=== PATIENT | male | born 1945 | race African-American/Black ===

== ENCOUNTER 2018-03-16 10:48 | Emergency (ER) | payer SELFPAY ==
[2018-03-16 11:07] VITALS: BP 162/76; PULSE 73; TEMP 98.4; BMI 29.8
[2018-03-16] MEDS ORDERED: ACETAMINOPHEN 325 MG TABLET (FP) PO ONE (12:45)
[2018-03-16] MEDS ORDERED: DIPHTH,PERTUSS(ACELL),TET 0.5 ML DISP.SYRIN IM ONE (12:45)
--- NOTE | 2018-03-16 12:46 | PDOC ---
History of Present Illness - General Chief Complaint: Injury Stated Complaint: LACERATION TO FACE Time Seen by Provider: 03/16/18 12:04 History Source: Patient - History of Present Illness Timing/Duration: reports: 1-3 hours Associated Symptoms: denies: loss of consciousness, nausea/vomiting, vision changes Past History - Past Medical History Allergies/Adverse Reactions: Allergies Allergy/AdvReac Type Severity Reaction Status Date / Time No Known Allergies Allergy Verified 03/16/18 11:07 Home Medications: Ambulatory Orders NK [No Known Home Medication] 03/16/18 COPD: No Diabetes: Yes HTN: Yes - Suicide/Smoking/Psychosocial Hx Smoking History: Never smoked Review of Systems - Review of Systems HEENTM: No: Blurred Vision Respiratory: No: Shortness of Breath Cardiac (ROS): No: Chest Pain, Lightheadedness Neurological: No: Headache, Dizziness *Physical Exam - Vital Signs Last Vital Signs Temp Pulse Resp BP Pulse Ox 98.4 F 73 18 162/76 99 03/16/18 11:03 03/16/18 11:03 03/16/18 11:03 03/16/18 11:03 03/16/18 11:03 - Physical Exam General Appearance: Yes: Appropriately Dressed. No: Apparent Distress HEENT: positive: Normal Voice, Other (1cm linear superficial lac to R brow, no crepitus/stepoffs, conjunctiva clear, EOMI, no other facial deformity/swelling) Respiratory/Chest: positive: Lungs Clear, Normal Breath Sounds Cardiovascular: positive: Regular Rate, S1, S2 Extremity: positive: Normal Inspection Integumentary: positive: Dry, Warm Neurologic: positive: Fully Oriented, Alert, Normal Mood/Affect, Normal Response , Motor Strength 5/5 Procedures - Laceration/Wound Repair Right Face Wound Length: to 2.5 cm Wound's Depth, Shape: superficial Irrigated w/ Saline: Yes Betadine Prep: Yes Anesthesia: 1% Lidocaine (5) Wound Repaired With: Sutures Suture Size/Type: 6:0, nylon (5) Sterile Dressing Applied: Yes ED Treatment Course - RADIOLOGY Radiology Studies Ordered: Category Date Time Status HEAD CT WITHOUT CONTRAST [CT] Stat CT Scan 03/16/18 12:45 Ordered Medical Decision Making - Medical Decision Making 03/16/18 12:46 72-year-old male history of hypertension, on baby aspirin at home, here with facial laceration after fall this a.m. patient states he slipped on wet floor in a restaurant this morning. No LOC, dizziness, visual changes, nausea or vomiting. On reports pain to site of laceration at this time. No chest pain or dizziness prior to fall. Denies any other injuries at this time See exam Head injury s/p mechanical fall On baby asa No loc, n/v and neuro intact -pain control -tetanus -CT head -lac repair 03/16/18 13:10 CT head read as negative. Status post lac repair. DC with wound check as needed in 48 hours. Reasons to return to ED sooner discussed with patient *DC/Admit/Observation/Transfer Diagnosis at time of Disposition: Facial laceration Qualifiers: Encounter type: initial encounter Qualified Code(s): S01.81XA - Laceration without foreign body of other part of head, initial encounter Head injury Qualifiers: Encounter type: initial encounter Qualified Code(s): S09.90XA - Unspecified injury of head, initial encounter - Discharge Dispostion Disposition: HOME Condition at time of disposition: Good - Referrals - Patient Instructions Printed Discharge Instructions: Laceration Repair, DI for Closed Head Injury Additional Instructions: Keep dressing in place for at least 24 hours after which one can be opened to air. You can gently cleaned wound with mild soap and water after 24 hours to prevent crusting over the suture knots. You can also apply an antibiotic ointment twice a day until sutures are removed. Return for redness, discharge or fever Sutures are removed in 5 days - Post Discharge Activity
== END 2018-03-16 13:26 | disposition home or self-care (01) ==
LOC: JERFT 10:48
PROC: 0HQ1XZZ Repair Face Skin, External Approach (ICD-10-PCS; principal; 2018-03-16)
PROC: 3E0234Z Introduction of Serum, Toxoid and Vaccine into Muscle, Percutaneous Approach (ICD-10-PCS; 2018-03-16)
DX: S01.111A Laceration without foreign body of right eyelid and periocular area, initial encounter (principal); W01.0XXA Fall on same level from slipping, tripping and stumbling without subsequent striking against object, initial encounter; Y93.89 Activity, other specified; Y92.511 Restaurant or cafe as the place of occurrence of the external cause; Y99.8 Other external cause status; I10 Essential (primary) hypertension; Z79.82 Long term (current) use of aspirin
CPT/HCPCS: 70450-TC; 90715; 99281-25

== ENCOUNTER 2019-12-13 09:12 | Inpatient (IN) | payer MEDICARE ==
--- NOTE | 2019-12-13 09:42 | PDOC ---
History of Present Illness - General Chief Complaint: Blood Pressure Problem Stated Complaint: HIGH BLOOD PRESSURE Time Seen by Provider: 12/13/19 09:29 - History of Present Illness Initial Comments: 12/13/19 10:36 The patient is a 74 year old male with a history of HTN, DM who presents for evaluation of elevated blood pressure. The patient reports that he has not taken his blood pressure medication in over 1 week. He states that he buys it off a friend not been to a physician in over 6 months and does not have any medication prescriptions. He otherwise denies headache, fevers, chills, SOB, chest pain, nausea, vomiting, abdominal pain, or changes with urination or bowel movements. Past History - Past Medical History Allergies/Adverse Reactions: Allergies Allergy/AdvReac Type Severity Reaction Status Date / Time No Known Allergies Allergy Verified 12/13/19 09:22 Home Medications: Ambulatory Orders Magnesium Salicylate/Caffeine [Diurex Water Pills] 1 each PO ASDIR 12/13/19 Quinapril HCl [Accupril -] 40 mg PO DAILY #14 tablet 12/13/19 COPD: No Diabetes: Yes HTN: Yes - Psycho Social/Smoking Cessation Hx Smoking History: Never smoked Review of Systems - Review of Systems Comments:: 12/13/19 10:38 Constitutional: No fevers, chills, fatigue, malaise HEENT: No Rhinorrhea, nasal congestion, visual changes Cardiovascular: No chest pain, syncope, palpitations, lightheadedness Respiratory: No Cough, SOB, Hemoptysis, Gastrointestinal: No Abdominal pain, Nausea, Vomiting, Constipation, Diarrhea, Melena Genitourinary: No Dysuria, Frequency, Urgency, Hesitancy, Hematuria, Flank pain Musculoskeletal: No Myalgia, arthralgia Skin: No rashes, itching, bruising, pallor Neurologic: No Headache, Dizziness, Numbness, Weakness, or Tingling Psychiatric: No Hallucinations. No SI or HI *Physical Exam - Vital Signs Last Vital Signs Temp Pulse Resp BP Pulse Ox 98 F 56 L 18 219/79 H 98 12/13/19 09:19 12/13/19 09:19 12/13/19 09:19 12/13/19 09:19 12/13/19 09:19 - Physical Exam 12/13/19 10:38 General Appearance: Nourished. No Apparent Distress HEENT: EOMI, FIORELLA. No Pharyngeal Erythema, Tonsillar Exudate, Tonsillar Erythema Neck: No Cervical Lymphadenopathy Respiratory/Chest: Lungs Clear, Normal Breath Sounds. No Crackles, Rales, Rhonchi, Wheezing Cardiovascular: Regular Rhythm, Regular Rate. No Murmur, Gallops, Rubs Gastrointestinal/Abdominal: Normal Bowel Sounds, Soft. No Guarding, Rebound, Tenderness Musculoskeletal: No CVA Tenderness Extremity: Normal Capillary Refill Integumentary: Normal Color, Dry, Warm Neurologic: Fully Oriented, Alert, Normal Mood/Affect, Normal Response, Heart Score/ECG Review #1 ECG reviewed & interpreted by me at: 10:38 12/13/19 10:38 HR 44 W[place] 236 QRS 88 QTc 396 Sinus bradycardia with 1st degree AV block Left ventricular Hypertrophy T wave inversions in leads II, III, aVF, V4-V6 ED Treatment Course - LABORATORY CBC & Chemistry Diagram: 12/13/19 09:40 12/13/19 09:40 Medical Decision Making - Medical Decision Making 12/13/19 10:40 The patient is a 74 year old male with a history of HTN, DM who presents for evaluation of elevated blood pressure. Given the patient's history and physical exam, we will obtain a cbc, cmp, troponin, ua, chest plain film, ekg to evaluate further. We will continue to monitor and reassess while here in the ED. 12/13/19 14:23 CBC, troponin are unremarkable. CMP demonstrates a creatinine of 1.6. Chest plain film did not demonstrate any acute process. Given the patient's abnormal EKG findings in the setting of poor outpatient follow up, the patient will require admission for further monitoring and management. We discussed the case with the admitting team who accepted the patient for admission. Discharge - Discharge Information Problems reviewed: Yes Clinical Impression/Diagnosis: Hypertensive urgency, TARSHA (acute kidney injury), Abnormal EKG Condition: Stable - Admission Yes - Follow up/Referral - Patient Discharge Instructions - Post Discharge Activity
[2019-12-13] MEDS ORDERED: QUINAPRIL HCL 40 MG TABLET (FP) PO ONE (09:43)
[2019-12-13 09:59] LABS: BASO % 0.9 % (0-2.0); EOS % 4.6 % (0-4.5); HEMATOCRIT 38.6 % (35.4-49); HEMOGLOBIN 12.5 GM/dL (11.7-16.9); LYMPH % 47.7 % (8-40); MCH 23.7 pg (25.7-33.7); MCHC 32.3 g/dl (32.0-35.9); MEAN CELL VOLUME 73.3 fl (80-96); MEAN PLT VOLUME 7.9 fl (7.5-11.1); MONO % 12.1 % (3.8-10.2); NEUT % 34.7 % (42.8-82.8); PLATELET COUNT 284 K/MM3 (134-434); RBC 5.27 M/mm3 (4.00-5.60); RDW 16.1 % (11.9-15.9); WHITE BLOOD COUNT 5.1 K/mm3 (4.0-10.0)
[2019-12-13] MEDS ORDERED: QUINAPRIL HCL 10 MG TABLET (FP) ONE (10:17)
[2019-12-13 10:22] LABS: ALBUMIN 3.4 g/dl (3.4-5.0); BILIRUBIN,TOTAL 0.6 mg/dL (0.2-1); BLOOD UREA NITROGEN 20.9 mg/dL (7-18); CALCIUM 9.2 mg/dL (8.5-10.1); CREATININE 1.6 mg/dL (0.55-1.3); POTASSIUM 4.6 mmol/L (3.5-5.1); TOT PROT 7.6 g/dl (6.4-8.2)
[2019-12-13] MEDS ORDERED: INSULIN REGULAR HUMAN 100 UNITS/ML *VIAL IVPUSH ONE (11:05)
[2019-12-13] MEDS ORDERED: NIFEdipine 10 MG CAPSULE (FP) PO ONE (11:27)
--- NOTE | 2019-12-13 12:39 | PDOC ---
Documentation entered by Geremias Beebe SCRIBE, acting as scribe for Supriya Acosta MD. Supriya Acosta MD: This documentation has been prepared by the Abiel sesay Nirvannie, SCRIBE, under my direction and personally reviewed by me in its entirety. I confirm that the documentation accurately reflects all work, treatment, procedures, and medical decision making performed by me. Attending Attestation - Resident Resident Name: Miguelangel Rios - ED Attending Attestation I have performed the following: I have examined & evaluated the patient, The case was reviewed & discussed with the resident, I agree w/resident's findings & plan, Exceptions are as noted - HPI HPI: 12/13/19 10:50 The patient is a 74 year old male, with a significant past medical history of HTN (not on any medications for >1 week) and DM, who presents to the emergency department with elevated blood pressure. As per patient, he has not been to a physician in >6 months and has been getting medication from a friend (they have been sharing). He notes running out of medications (Quinapril HCl 40 mg PO daily ) over a week ago and his blood pressure has been significantly elevated, prompting his arrival to the ED. Allergies: NKDA - Physicial Exam PE: GENERAL: Awake, alert, and fully oriented, in no acute distress HEAD: No signs of trauma EYES: PERRLA, EOMI, sclera anicteric, conjunctiva clear ENT: Auricles normal inspection, hearing grossly normal, nares patent, oropharynx clear without exudates. Moist mucosa NECK: Normal ROM, supple, no lymphadenopathy, JVD, or masses LUNGS: Breath sounds equal, clear to auscultation bilaterally. No wheezes, and no crackles HEART: Bradycardic with regular rhythm, normal S1 and S2, no murmurs, rubs or gallops ABDOMEN: Soft, nontender, normoactive bowel sounds. No guarding, no rebound. No masses EXTREMITIES: Normal range of motion, no edema. No clubbing or cyanosis. No cords, erythema, or tenderness NEUROLOGICAL: Cranial nerves II through XII grossly intact. Normal speech, normal gait. Motor and sensation intact SKIN: Warm, dry, normal turgor, no rashes or lesions noted. - Medical Decision Making Pt with hypertension, associated with EKG changes. Also noted to have TARSHA, hyperglycemia. Will plan for admission. Heart Score/ECG Review - ECG Impressions Comment:: EKG read 10:27- Sinus renny with 1st deg AV block, T inversions in lateral and inferior leads. +LVH
[2019-12-13 13:16] LABS: URINE APPEARANCE CLEAR; URINE BILIRUBIN NEGATIVE (NEGATIVE); URINE COLOR YELLOW; URINE GLUCOSE (UA) 3+ (NEGATIVE); URINE KETONE NEGATIVE (NEGATIVE); URINE LEUK ESTERASE NEGATIVE (NEGATIVE); URINE NITRITE NEGATIVE (NEGATIVE); URINE PROTEIN TRACE (NEGATIVE); URINE UROBILINOGEN 0.2 mg/dL (0.2-1.0)
--- NOTE | 2019-12-13 13:24 | HP ---
Admitting History and Physical - Primary Care Physician PCP: no - Admission Chief Complaint: elevated blood pressure History of Present Illness: The patient is a 74 year old male, with a significant past medical history of HTN (not on any medications for >1 week) and DM, who presents to the emergency department with elevated blood pressure. As per patient, he has not been to a physician in >6 months and has been getting medication from a friend and ran out 1 week ago. He is un-insured and pending medicaid approval History Source: Patient Limitations to Obtaining History: No Limitations - Past Medical History Cardiovascular: Yes: HTN Endocrine: Yes: Diabetes Mellitus - Smoking History Smoking history: Never smoked Have you smoked in the past 12 months: No - Alcohol/Substance Use Hx Alcohol Use: No History of Substance Use: reports: None - Social History Usual Living Arrangement: Yes: Alone Do you think of yourself as: Straight/Heterosexual ADL: Independent Occupation: retired History of Recent Travel: No Other Social History: un-insured awaiting medicaid approval Home Medications - Allergies Allergies/Adverse Reactions: Allergies Allergy/AdvReac Type Severity Reaction Status Date / Time No Known Allergies Allergy Verified 12/13/19 09:22 - Home Medications Home Medications: Ambulatory Orders Magnesium Salicylate/Caffeine [Diurex Water Pills] 1 each PO ASDIR 12/13/19 Quinapril HCl [Accupril -] 40 mg PO DAILY #14 tablet 12/13/19 Family Medical History Family History: Denies Review of Systems - Review of Systems Constitutional: reports: No Symptoms Eyes: reports: No Symptoms HENT: reports: No Symptoms Neck: reports: No Symptoms Cardiovascular: reports: No Symptoms, Other (elevated BP) Respiratory: reports: No Symptoms Gastrointestinal: reports: No Symptoms Genitourinary: reports: No Symptoms Breasts: reports: No Symptoms Reported Musculoskeletal: reports: No Symptoms Integumentary: reports: No Symptoms Neurological: reports: No Symptoms Endocrine: reports: No Symptoms Hematology/Lymphatic: reports: No Symptoms Psychiatric: reports: No Symptoms Physical Examination Vital Signs: Vital Signs Temperature 98 F 12/13/19 09:19 Pulse Rate 51 L 12/13/19 12:59 Respiratory Rate 14 12/13/19 12:59 Blood Pressure 163/78 12/13/19 12:59 O2 Sat by Pulse Oximetry (%) 100 12/13/19 12:59 Constitutional: Yes: No Distress, Calm, Thin Eyes: Yes: WNL, Conjunctiva Clear, EOM Intact HENT: Yes: WNL, Atraumatic, Normocephalic Neck: Yes: WNL, Supple, Trachea Midline Cardiovascular: Yes: Regular Rate and Rhythm, Bradycardia Respiratory: Yes: WNL, Regular, CTA Bilaterally Gastrointestinal: Yes: WNL, Normal Bowel Sounds, Soft ...Rectal Exam: Yes: Deferred Renal/: Yes: WNL Breast(s): Yes: WNL Musculoskeletal: Yes: WNL Extremities: Yes: WNL Edema: No Peripheral Pulses WNL: Yes Integumentary: Yes: WNL Neurological: Yes: WNL, Alert, Oriented ...Motor Strength: WNL Psychiatric: Yes: WNL Labs: CBC, BMP 12/13/19 09:40 Imaging - Results Cat Scan: Image Reviewed (no effusion or infiltartes) EKG: Image Reviewed (T wave inversions in leads II, III, aVF, V4-V6 HR 44 QTc 396 Sinus bradycardia with 1st degree AV block Left ventricular Hypertrophy) Problem List - Problems (1) Diabetes Assessment/Plan: BGM /HS with novolog sliding scale HgbA1c 13-non complaince with DM meds d/t lack on insurance Code(s): E11.9 - TYPE 2 DIABETES MELLITUS WITHOUT COMPLICATIONS (2) Elevated hemoglobin A1c Assessment/Plan: novolog sliding scale Code(s): R73.09 - OTHER ABNORMAL GLUCOSE (3) Prophylactic measure Assessment/Plan: FEN Fluids: NS bolus 1000cc x 1 Electrolytes: monitor & replete as needed Nutrition: diabetic diet DVT moderate risk sq heparin Dispo Maintain as inpatient full code discharge planning Code(s): Z29.9 - ENCOUNTER FOR PROPHYLACTIC MEASURES, UNSPECIFIED (4) TARSHA (acute kidney injury) Assessment/Plan: Cr 1.6 no baseline 1L NS bolus will send urine electrolytes, Jaclyn 66 avoid nephrotoxic agents if Cr does not come down with IVF will do renal U/S and consult renal in am Code(s): N17.9 - ACUTE KIDNEY FAILURE, UNSPECIFIED (5) Hypertensive urgency Assessment/Plan: SBP 220 in ED dose of quinapril given in ED given Cr 1.6 will hold KRYS and give norvasc in am Code(s): I16.0 - HYPERTENSIVE URGENCY (6) Abnormal EKG Assessment/Plan: T wave inversions in leads II, III, aVF, V4-V6 trop neg x 2 most likely r/t to demand ischemia from hypertension TTE oredered cardiology consult requested Code(s): R94.31 - ABNORMAL ELECTROCARDIOGRAM [ECG] [EKG] Visit type - Emergency Visit Emergency Visit: Yes ED Registration Date: 12/13/19 Care time: The patient presented to the Emergency Department on the above date and was hospitalized for further evaluation of their emergent condition. - New Patient This patient is new to me today: Yes Date on this admission: 12/13/19 - Critical Care Critical Care patient: No
[2019-12-13] MEDS ORDERED: ASPIRIN 325 MG ENTERIC COATED TABLET (FP) ONE (14:27)
[2019-12-13] MEDS: ASPIRIN 325 MG ENTERIC COATED TABLET (FP) PO SCH (14:30)
[2019-12-13] MEDS ORDERED: SODIUM CHLORIDE 1,000 ML IV STA (16:16)
[2019-12-13] MEDS: INSULIN SLIDING SCALE (NOVOLOG) 1 VIAL SQ SCH ×2 (16:35→23:12)
[2019-12-13] MEDS ORDERED: HEPARIN NA (PORCINE) 5,000 UNITS/ML 1ML VIAL ONE (22:56)
[2019-12-13] MEDS: HEPARIN NA (PORCINE) 5,000 UNITS/ML 1ML VIAL SQ SCH (23:11)
[2019-12-14 02:37] VITALS: BMI 25.9
[2019-12-14] MEDS: INSULIN SLIDING SCALE (NOVOLOG) 1 VIAL SQ SCH ×4 (06:21→22:51)
[2019-12-14 06:29] LABS: BASO % 0.7 % (0-2.0); EOS % 2.9 % (0-4.5); HEMOGLOBIN 12.1 GM/dL (11.7-16.9); LYMPH % 51.7 % (8-40); MCH 23.8 pg (25.7-33.7); MCHC 32.6 g/dl (32.0-35.9); MEAN CELL VOLUME 73.1 fl (80-96); MONO % 9.6 % (3.8-10.2); NEUT % 35.1 % (42.8-82.8); PLATELET COUNT 270 K/MM3 (134-434); RBC 5.06 M/mm3 (4.00-5.60); RDW 15.7 % (11.9-15.9); WHITE BLOOD COUNT 6.3 K/mm3 (4.0-10.0)
[2019-12-14 07:20] LABS: BILIRUBIN,TOTAL 0.7 mg/dL (0.2-1); BLOOD UREA NITROGEN 22.8 mg/dL (7-18); CALCIUM 8.6 mg/dL (8.5-10.1); CREATININE 1.4 mg/dL (0.55-1.3); MAGNESIUM 1.9 mg/dL (1.8-2.4); POTASSIUM 4.7 mmol/L (3.5-5.1); TOT PROT 6.7 g/dl (6.4-8.2)
--- NOTE | 2019-12-14 07:43 | HOSP ---
Subjective - Review of Symptoms Events since last encounter: Hospitalist Encounter Notified via microblog that the patient had periods of bradycardia and is asymptomatic, was asked to assess. Arrived to bedside, patient is asleep but arousable, oriented. Patient denies lightheadedness, dizziness, CP, palpitations or SOB. PE performed see EMR Assessment: The patient is a 74 year old male, with a significant past medical history of HTN (not on any medications for >1 week) and DM. Admitted for Hypertensive Urgency, TARSHA. Plan: EKG- stat Pacer Pads RN to call Gear Machine Operator General Physical Examination Vital Signs: Vital Signs Temperature 97.8 F 12/14/19 04:00 Pulse Rate 50 L 12/14/19 04:00 Respiratory Rate 18 12/14/19 04:00 Blood Pressure 170/88 12/14/19 04:00 O2 Sat by Pulse Oximetry (%) 97 12/14/19 02:24 Constitutional: Yes: Well Nourished, No Distress, Calm Eyes: Yes: WNL, Conjunctiva Clear, EOM Intact, PERRL HENT: Yes: WNL, Atraumatic, Normocephalic Neck: Yes: WNL, Supple, Trachea Midline Cardiovascular: Yes: Bradycardia, Pulse Irregular, Murmur, S1, S2 Respiratory: Yes: WNL, Regular, CTA Bilaterally Gastrointestinal: Yes: WNL, Normal Bowel Sounds, Soft ...Rectal Exam: Yes: Deferred Renal/: Yes: WNL Breast(s): Yes: WNL Musculoskeletal: Yes: WNL Extremities: Yes: WNL Edema: No Peripheral Pulses WNL: Yes Neurological: Yes: WNL, Alert, Oriented, Cran Nerves II-XII Intact ...Motor Strength: WNL Psychiatric: Yes: WNL, Alert, Oriented Labs: CBC, BMP 12/14/19 05:45 12/14/19 05:45 Hospitalist Encounter Outcome: EKG reviewed- SR with 1st degree AV Block with PACs, LVH. Monitor strips reviewed- HR 28- 36 Discussed with RN, place pacer pads, inform the Gear Machine Operator General for further orders. Will continue to monitor, RN advised to hold BP meds for now
--- NOTE | 2019-12-14 07:59 | PN ---
Progress Note, Physician Chief Complaint: Blood pressure remains high. No complaints of chest pain despite ischemia changes on EKG. History of Present Illness: The patient is a 74 year old male, with a significant past medical history of HTN (not on any medications for >1 week) and DM, who presents to the emergency department with elevated blood pressure. EKG with ischemic changes - Current Medication List Current Medications: Active Medications Amlodipine Besylate (Norvasc -) 10 mg PO DAILY [facility] Aspirin (Ecotrin -) 325 mg PO DAILY [facility] Last Admin: 12/13/19 14:30 Dose: 325 mg Heparin Sodium (Porcine) (Heparin -) 5,000 unit SQ BID [facility] Last Admin: 12/13/19 23:11 Dose: 5,000 unit Insulin Aspart (Novolog Vial Sliding Scale -) 1 vial SQ ACHS [facility]; Protocol Last Admin: 12/14/19 06:21 Dose: Not Given - Objective Vital Signs: Vital Signs Temperature 97.8 F 12/14/19 04:00 Pulse Rate 50 L 12/14/19 04:00 Respiratory Rate 18 12/14/19 04:00 Blood Pressure 170/88 12/14/19 04:00 O2 Sat by Pulse Oximetry (%) 97 12/14/19 02:24 Constitutional: Yes: Thin Eyes: Yes: WNL, Conjunctiva Clear HENT: Yes: WNL, Atraumatic, Normocephalic Neck: Yes: WNL, Supple, Trachea Midline Cardiovascular: Yes: Regular Rate and Rhythm, Bradycardia (50-60s) Respiratory: Yes: WNL, Regular, CTA Bilaterally Gastrointestinal: Yes: WNL, Normal Bowel Sounds ...Rectal Exam: Yes: Deferred Genitourinary: Yes: WNL Breast(s): Yes: WNL Musculoskeletal: Yes: WNL Edema: No Peripheral Pulses WNL: Yes Peripheral Pulses: Left Radial: 2+, Right Radial: 2+, Left Doralis Pedis: 2+, Right Dorsalis Pedis: 2+, Left Femoral: 2+, Right Femoral: 2+ Integumentary: Yes: WNL Neurological: Yes: WNL, Alert, Oriented ...Motor Strength: WNL Psychiatric: Yes: WNL Labs: CBC, BMP 12/14/19 05:45 12/14/19 05:45 - ....Imaging Other: Report Reviewed (TTE: EF 55-60,mild ) Problem List - Problems (1) Diabetes Assessment/Plan: BGM /HS with novolog sliding scale HgbA1c 13-non compliance with DM meds d/t lack on insurance Code(s): E11.9 - TYPE 2 DIABETES MELLITUS WITHOUT COMPLICATIONS (2) Elevated hemoglobin A1c Assessment/Plan: novolog sliding scale BGM controlled overnight RD consultation Code(s): R73.09 - OTHER ABNORMAL GLUCOSE (3) Prophylactic measure Assessment/Plan: FEN Fluids: adequate PO intake now Electrolytes: monitor & replete as needed Nutrition: diabetic diet DVT moderate risk sq heparin Dispo Maintain as inpatient full code discharge planning Code(s): Z29.9 - ENCOUNTER FOR PROPHYLACTIC MEASURES, UNSPECIFIED (4) TARSHA (acute kidney injury) Assessment/Plan: Cr 1.6 no baseline 1L NS bolus given last night Cr now 1.4 Urine lytes sent FeNa 1.42, suspect hypovolemia given poor nutritional status would avoid restaring KRYS until Cr stabilizes avoid nephrotoxic agents Code(s): N17.9 - ACUTE KIDNEY FAILURE, UNSPECIFIED (5) Hypertensive urgency Assessment/Plan: SBP 220 in ED dose of quinapril given in ED BP decreased to 170s started on norvasc given Cr 1.4 will hold KRYS for now and given hydralazine now Code(s): I16.0 - HYPERTENSIVE URGENCY (6) Abnormal EKG Assessment/Plan: T wave inversions in leads II, III, aVF, V4-V6 trop neg x 2 most likely r/t to demand ischemia from hypertension TTE with nml EF , mild cardiology consultation apppreciated Code(s): R94.31 - ABNORMAL ELECTROCARDIOGRAM [ECG] [EKG] (7) Bradyarrhythmia Code(s): I49.8 - OTHER SPECIFIED CARDIAC ARRHYTHMIAS (8) Bradycardia Assessment/Plan: HR 50-60s avoid amirah blocking agents Holter monitor recommened by cardiology sleep screen requested with formal JENI study as outpatient Code(s): R00.1 - BRADYCARDIA, UNSPECIFIED Visit type - Emergency Visit Emergency Visit: Yes ED Registration Date: 12/13/19 Care time: The patient presented to the Emergency Department on the above date and was hospitalized for further evaluation of their emergent condition. - New Patient This patient is new to me today: No - Critical Care Critical Care patient: No - Discharge Referral Referred to [facility] Med P.C.: No
--- NOTE | 2019-12-14 09:37 | PN ---
Progress Note (short form) - Note Progress Note: Coverage for Dr. Cari Khan Chief Complaint: Events noted, notes reviewed, evaluation of uncontrolled blood pressure related to medical therapy non- administration, abnormal EKG, denies any chest discomfort or dyspnea History of Present Illness: Seen and examined on telemetry. Full consult dictated Medications: Current Medications Amlodipine Besylate (Norvasc -) 10 mg PO DAILY [facility] Aspirin (Ecotrin -) 325 mg PO DAILY [facility] Last Admin: 12/13/19 14:30 Dose: 325 mg Heparin Sodium (Porcine) (Heparin -) 5,000 unit SQ BID [facility] Last Admin: 12/13/19 23:11 Dose: 5,000 unit Insulin Aspart (Novolog Vial Sliding Scale -) 1 vial SQ ACHS [facility]; Protocol Last Admin: 12/14/19 06:21 Dose: Not Given Review of Systems - Review of Systems Constitutional: denies: Chills, Fever Cardiovascular: As noted above Respiratory: denies: Cough or Sputum Production Gastrointestinal: denies: Nausea, Vomiting, Diarrhea, Constipation or Abdominal Pain Neurological: denies: Headaches Vital Signs: Last Vital Signs Temp Pulse Resp BP Pulse Ox 97.8 F 50 L 18 170/88 97 12/14/19 04:00 12/14/19 04:00 12/14/19 04:00 12/14/19 04:00 12/14/19 02:24 Intake & Output 12/11/19 12/12/19 12/13/19 12/14/19 23:59 23:59 23:59 23:59 Weight 175 lb 160 lb 11.2 oz Neck: Supple Negative JVD No Bruit Respiratory: Clear to A&P bilaterally Cardiovascular: S1 S2 Regular Rate and Rhythm Grade 2/6 GE and Grade 2-3/6 SM Apical Gastrointestinal: Soft Benign Normal Bowel Sounds Ext: Negative Edema Labs: Troponin, BNP 12/13/19 12/13/19 09:40 14:40 Troponin I 0.02 0.02 CBC, BMP 12/14/19 05:45 12/14/19 05:45 Hepatic Panel Total Bilirubin 0.7 mg/dL (0.2-1) 12/14/19 05:45 AST 14 U/L (15-37) L 12/14/19 05:45 ALT 13 U/L (13-61) 12/14/19 05:45 Alkaline Phosphatase 127 U/L (45-117) H 12/14/19 05:45 Albumin 3.0 g/dl (3.4-5.0) L 12/14/19 05:45 Assessment/Plan ASSESSMENT: 1. HTN, uncontrolled blood pressure related to medical therapy non- administration, 2. Hypertensive cardiomyopathy to be excluded 3. CAD with no clinical angina pectoris, to be considered in the differential diagnosis 4. Systolic ejection murmur, significant stenosis to be excluded 5. Systolic apical murmur, significant MR to be excluded 6. Bradycardia related to sinus bradycardia/arrhythmia, Mobitz I AV blocks and blocked APC's with no evidence of advanced AV block- high vagal tone 7. DM 8. Hypercholesterolemia 9. CKD PLAN: 1. Continue Norvasc 2. Recommend the addition of ACEI, resume Accupril 3. Recommend the addition of HCTZ 4. Avoidance of AV amirah blocking agents 5. Continue ASA 6. Echocardiography to evaluate LV size and function and the above noted valvular pathologies 7. Holter monitor 8. Consider sleep study as outpatient for further evaluation of the above noted renny-arrhythmia Fannie Tang M.D.
[2019-12-14] MEDS ORDERED: QUINAPRIL HCL 40 MG TABLET (FP) PO SCH (10:00)
[2019-12-14] MEDS ORDERED: PT OWN MED DRAWER 7, Y5N ONE (10:14)
[2019-12-14] MEDS: ASPIRIN 325 MG ENTERIC COATED TABLET (FP) PO SCH (10:20)
[2019-12-14] MEDS: amLODIPine BESYLATE 10 MG TABLET (FP) PO SCH (10:20)
[2019-12-14] MEDS: QUINAPRIL HCL 40 MG TABLET (FP) PO SCH (10:20)
[2019-12-14] MEDS: HEPARIN NA (PORCINE) 5,000 UNITS/ML 1ML VIAL SQ SCH ×2 (10:20→22:51)
--- NOTE | 2019-12-14 11:09 | ECHO ---
Name: GRACE MONTERROSO Exam:Adult Echocardiogram Study Date: 12/14/2019 08:36 AM Age: 74 yrs Reason For Study: Ischemia on ekg Height: 66 in Weight: 175 lb BSA: 1.9 m2 MMode/2D Measurements & Calculations IVSd: 1.8 cm Ao root diam: 2.1 cm LVIDd: 3.5 cm LA dimension: 3.0 cm LVIDs: 1.8 cm ACS: 1.8 cm LVPWd: 1.8 cm EDV(Teich): 50.0 ml LVOT diam: 1.9 cm ESV(Teich): 10.0 ml RV S Mikhail: 15.6 cm/sec Doppler Measurements & Calculations MV E max mikhail: 52.1 cm/sec MV A max mikhail: 118.4 cm/sec MV dec slope: 230.6 cm/sec2 MV E/A: 0.44 Ao V2 max: 166.8 cm/sec AI max mikhail: 179.8 cm/sec Ao max P.4 mmHg AI max P.9 mmHg Ao V2 mean: 118.0 cm/sec AI dec slope: 42.1 cm/sec2 Ao mean P.8 mmHg Ao V2 VTI: 38.5 cm FIORELLA(I,D): 1.8 cm2 AI P1/2t: 1251 msec FIORELLA(V,D): 1.6 cm2 LV V1 max P.6 mmHg SV(LVOT): 68.0 ml LV V1 mean P.3 mmHg LV V1 max: 95.4 cm/sec LV V1 mean: 73.4 cm/sec LV V1 VTI: 24.3 cm TR max mikhail: 161.5 cm/sec PA V2 max: 80.5 cm/sec TR max P.5 mmHg PA max P.6 mmHg Med Peak E' Mikhail: 4.7 cm/sec Med E/e': 11.1 Lat Peak E' Mikhail: 3.5 cm/sec Lat E/e': 15.0 Left Ventricle The left ventricle is normal in size. There is severe concentric left ventricular hypertrophy. The le ft ventricular ejection fraction is normal. Ejection Fraction = 55-60%. The transmitral spectral Doppler flow pattern is suggestive of impaired LV relaxation. Right Ventricle The right ventricle is grossly normal size. Atria Normal left and right atrial size and function. Mitral Valve The mitral valve is grossly normal. There is no mitral regurgitation noted. Tricuspid Valve The tricuspid valve is not well visualized, but is grossly normal. No tricuspid regurgitation. Aortic Valve Calcified. Mild valvular aortic stenosis. Mild aortic regurgitation. Pulmonic Valve The pulmonic valve is not well visualized. Great Vessels The aortic root is not well visualized. Pericardium/Pleura There is no pericardial effusion. Interpretation Summary LV; Normal size severe LVH, normal contractility and systolic function, EF 55-60%; Impaired relaxatio n RV: grossly normal Atria: grossly normal size Calcified aortic valve, mild stenosis and regurgitation. Nick Romreo 12/14/2019 11:09 AM
--- NOTE | 2019-12-14 11:33 | CONS ---
DATE OF CONSULTATION: 12/14/2019 REQUESTED BY: Hospitalist service Coverage for [place] MD INDICATION: Evaluation of elevated blood pressure and an abnormal electrocardiogram. HISTORY: History was obtained from the patient. A 74-year-old male of descent with known history of hypertension/hypertensive cardiovascular disease and diabetes mellitus who denied any prior history of coronary artery disease or congestive heart failure. Denied any prior history of hypercholesterolemia. Presented to [facility] Emergency Room for evaluation of elevated home blood pressure measurements. Patient has not seen a physician in several years and, according to him, patient did not administer his antihypertensive therapy for the past week or so since he did not have any additional therapy available. Patient denied any headaches or photophobia. Patient denied any chest discomfort. Patient denied any dyspnea, orthopnea, paroxysmal or nocturnal dyspnea, or peripheral edema. Patient denied any palpitations, dizziness, lightheadedness, or syncope. Upon evaluation in the emergency room, the patient was noted to have an abnormal electrocardiogram. Monitor last night revealed evidence of bradycardia further evaluation of which revealed evidence of sinus bradycardia with sinus arrhythmia and 1st-degree AV block, probably blocked APCs. Patient currently is asymptomatic. PAST MEDICAL HISTORY: Hypertension/hypertensive cardiovascular disease and diabetes mellitus. PAST SURGICAL HISTORY: None. SOCIAL HISTORY: Nonsmoker. FAMILY HISTORY: No family history of coronary artery disease. ALLERGIES: None reported. REVIEW OF SYSTEMS: Head and Neck: Denies headache, photophobia, blurring of vision. Respiratory: No cough or sputum production. Cardiovascular: As noted above. Gastrointestinal: Denied nausea, vomiting, diarrhea, abdominal discomfort. Genitourinary: No symptoms reported. Musculoskeletal: No symptoms reported. PHYSICAL EXAMINATION: Vital Signs: Blood pressure is 170/88 mmHg, pulse rate is 50 beats per minute. Head and Neck: Pupils equal, reactive to light and accommodation. Extraocular muscles are intact. Anicteric sclerae. Negative JVD. No bruits appreciated. Chest: Clear to auscultation and percussion. Cardiovascular: S1, S2. Regular. Occasional ectopics with grade 2/6 systolic ejection murmur, grade 2/6-3/6 systolic apical murmur with radiation to the axilla. Abdomen: Soft, benign. Normoactive bowel sounds. Extremities: Negative edema. Intact distal pulses. No calf tenderness. DIAGNOSTIC DATA: Electrocardiogram reveals sinus bradycardia with sinus arrhythmia, increased voltage. ST-segment and T-wave abnormality most likely related to repolarization change. Troponin I levels were noted. CBC revealed a white cell count 6.3, hemoglobin 12.1, platelets 270. Basic metabolic profile revealed sodium 141, potassium 4.7, BUN 22.8, creatinine 1.4, glucose 120. ASSESSMENT: 1. Hypertension, uncontrolled. Blood pressure related to medical therapy nonadministration. 2. Hypertensive cardiomyopathy to be excluded with systolic left ventricular dysfunction. 3. Coronary artery disease with no clinical angina pectoris to be considered in the differential diagnosis. 4. Systolic ejection murmur. Significant aortic valve stenosis to be excluded. 5. Systolic apical murmur. Significant mitral valve regurgitation to be excluded. 6. Bradycardia related to sinus bradycardia/sinus arrhythmia, Mobitz 1 atrioventricular block and blocked atrial premature ventricular contractions with no evidence of advanced atrioventricular block most likely related to high vagal tone. 7. Diabetes mellitus. 8. Hypercholesterolemia. 9. Chronic kidney disease. RECOMMENDATION: 1. Continuation of Norvasc therapy. 2. Recommend the addition of KRYS inhibitor, resumption of Accupril therapy. 3. Recommend the addition of hydrochlorothiazide therapy. 4. Avoidance of atrioventricular amirah blocking agents. 5. Continuation of aspirin therapy. 6. Echocardiography for evaluation of left ventricular size and systolic function and the above-noted valvular pathologies. 7. Holter monitor. 8. Consider sleep study as outpatient for further evaluation of the above-noted bradycardic arrhythmia. Thank you for kind referral. ANETTE BARNEY M.D. [id number]
--- NOTE | 2019-12-14 12:08 | EKG ---
Test Reason : Blood Pressure : / mmHG Vent. Rate : 044 BPM Atrial Rate : 054 BPM P-R Int : 236 ms QRS Dur : 088 ms QT Int : 464 ms P-R-T Axes : 078 024 262 degrees QTc Int : 396 ms SINUS BRADYCARDIA one AVB (2:1), likely Wenckebach,Ist degree AVB with fluctuating LA LEFT VENTRICULAR HYPERTROPHY WITH REPOLARIZATION ABNORMALITY , consider ischemia CANNOT RULE OUT SEPTAL INFARCT , AGE UNDETERMINED ABNORMAL ECG NO PREVIOUS ECGS AVAILABLE Confirmed by Nick Romero ([id number]) on 12/14/2019 12:08:13 PM Referred By: Confirmed By:Nick Romero
[2019-12-14] MEDS: hydrALAZINE HCL 10 MG TABLET PO SCH ×2 (13:45→22:51)
[2019-12-14] MEDS: AMINO ACIDS/PROTEIN HYDROLYS 30 ML LIQUID.PKT PO SCH (17:38)
[2019-12-14] MEDS: ROSUVASTATIN CA 20 MG TABLET (FP) PO SCH (22:51)
[2019-12-15] MEDS: hydrALAZINE HCL 10 MG TABLET PO SCH ×3 (06:30→23:16)
[2019-12-15] MEDS: INSULIN SLIDING SCALE (NOVOLOG) 1 VIAL SQ SCH ×4 (06:30→23:17)
[2019-12-15 06:54] LABS: BASO % 0.6 % (0-2.0); EOS % 2.7 % (0-4.5); HEMATOCRIT 37.2 % (35.4-49); LYMPH % 45.7 % (8-40); MCH 23.8 pg (25.7-33.7); MCHC 32.4 g/dl (32.0-35.9); MEAN CELL VOLUME 73.4 fl (80-96); MEAN PLT VOLUME 7.9 fl (7.5-11.1); MONO % 8.4 % (3.8-10.2); NEUT % 42.6 % (42.8-82.8); PLATELET COUNT 284 K/MM3 (134-434); RBC 5.07 M/mm3 (4.00-5.60); RDW 15.9 % (11.9-15.9); WHITE BLOOD COUNT 5.3 K/mm3 (4.0-10.0)
[2019-12-15 07:12] LABS: ALBUMIN 3.1 g/dl (3.4-5.0); BILIRUBIN,TOTAL 0.4 mg/dL (0.2-1); BLOOD UREA NITROGEN 25.8 mg/dL (7-18); CALCIUM 8.6 mg/dL (8.5-10.1); CREATININE 1.3 mg/dL (0.55-1.3); MAGNESIUM 1.9 mg/dL (1.8-2.4); POTASSIUM 4.5 mmol/L (3.5-5.1); TOT PROT 6.9 g/dl (6.4-8.2)
[2019-12-15] MEDS: AMINO ACIDS/PROTEIN HYDROLYS 30 ML LIQUID.PKT PO SCH ×2 (08:32→18:20)
[2019-12-15] MEDS: ASPIRIN 81 MG CHEWABLE TABLETS PO SCH (09:18)
[2019-12-15] MEDS: amLODIPine BESYLATE 10 MG TABLET (FP) PO SCH (09:18)
[2019-12-15] MEDS: QUINAPRIL HCL 40 MG TABLET (FP) PO SCH (09:18)
[2019-12-15] MEDS: HEPARIN NA (PORCINE) 5,000 UNITS/ML 1ML VIAL SQ SCH ×2 (09:18→23:16)
--- NOTE | 2019-12-15 09:47 | PN ---
Progress Note, Physician Chief Complaint: Pt A&Ox3; ambulates (and says he walks up to 2 miles a day, several days a week , without chest pain or dyspnea). Denies dizziness; denies hx syncope. History of Present Illness: 74 year old black man (b. Lani), with a significant past medical history of HTN (not on any medications for >1 week) and DM, noncompliant to doctors or medicines (used to wofk for a retirement, but says he has no pension or insurance), who presents to the emergency department with elevated blood pressure. As per patient, he has not been to a physician in >6 months and has been getting medication from a friend (they have been sharing). He notes running out of medications (Quinapril HCl 40 mg PO daily) over a week ago and his blood pressure has been significantly elevated, prompting his arrival to the ED. - Current Medication List Current Medications: Active Medications Amino Acids (Prosource No Carb Liquid Pkt) 30 ml PO BID@0800,1730 [facility] Last Admin: 12/15/19 08:32 Dose: 30 ml Amlodipine Besylate (Norvasc -) 10 mg PO DAILY [facility] Last Admin: 12/15/19 09:18 Dose: 10 mg Aspirin (Asa -) 81 mg PO DAILY [facility] Last Admin: 12/15/19 09:18 Dose: 81 mg Heparin Sodium (Porcine) (Heparin -) 5,000 unit SQ BID [facility] Last Admin: 12/15/19 09:18 Dose: 5,000 unit Hydralazine HCl (Apresoline -) 10 mg PO TID [facility] Last Admin: 12/15/19 06:30 Dose: 10 mg Insulin Aspart (Novolog Vial Sliding Scale -) 1 vial SQ ACHS [facility]; Protocol Last Admin: 12/15/19 06:30 Dose: Not Given Quinapril HCl (Accupril -) 40 mg PO DAILY [facility] Last Admin: 12/15/19 09:18 Dose: 40 mg Rosuvastatin Calcium (Crestor -) 20 mg PO HS [facility] Last Admin: 12/14/19 22:51 Dose: 20 mg - Objective Vital Signs: Vital Signs Temperature 97.4 F L 12/15/19 06:31 Pulse Rate 56 L 12/15/19 06:31 Respiratory Rate 20 12/15/19 06:31 Blood Pressure 148/74 12/15/19 06:31 O2 Sat by Pulse Oximetry (%) 99 12/14/19 21:00 Constitutional: Yes: Anxious Eyes: Yes: WNL HENT: Yes: WNL Neck: Yes: WNL Cardiovascular: Yes: S1, S2 Respiratory: Yes: Regular ...Rectal Exam: Yes: Deferred Genitourinary: No: Anuria Breast(s): Yes: WNL Musculoskeletal: Yes: Muscle Weakness Extremities: Yes: Cool Edema: No Peripheral Pulses WNL: Yes Integumentary: Yes: WNL Neurological: Yes: Alert, Oriented, Weakness Psychiatric: Yes: Alert, Oriented Labs: CBC, BMP 12/15/19 06:09 12/15/19 06:09 Abnormal Lab Results 12/15/19 12/16/19 12/16/19 06:09 05:10 05:10 Hgb 11.0 L Hct 34.2 L MCV 72.8 L MCH 23.4 L Neutrophils % 30.0 L D Lymphocytes % 53.5 H Monocytes % 11.5 H Chloride 110 H Anion Gap 7 L 7 L BUN 25.8 H 30.2 H Random Glucose 109 H 247 H Calcium 8.3 L AST 14 L 14 L Alkaline Phosphatase 125 H 123 H Total Protein 6.3 L Albumin 3.1 L 2.9 L - ....Imaging Other: Report Reviewed (holter monitor) Problem List - Problems (1) Noncompliance Code(s): Z91.19 - PATIENT'S NONCOMPLIANCE W OTH MEDICAL TREATMENT AND REGIMEN (2) Diabetes Code(s): E11.9 - TYPE 2 DIABETES MELLITUS WITHOUT COMPLICATIONS (3) Elevated hemoglobin A1c Code(s): R73.09 - OTHER ABNORMAL GLUCOSE (4) Hypertensive urgency Code(s): I16.0 - HYPERTENSIVE URGENCY (5) [place] cardiac risk >20% in next 10 years Assessment/Plan: Pt says he had a stress treadmill test about 3 yeara ago "in the [place], near [facility]" that was negative for ischemia. F/u results. Will have low threshold to do stress test when BP is stable. Code(s): Z91.89 - OTH PERSONAL RISK FACTORS, NOT ELSEWHERE CLASSIFIED (6) Second degree AV block, Mobitz type I Assessment/Plan: Holter 12/14/19: 2nd degree AVB, Mobitz Type I, with marked bradycardia and vnetricular escape beats. Pt was reportedly on beta pierre ? shortly before this study; will collect information on this. Pt denies hx of dizziness, palpitations, chest pain, or syncope. F/u TSH. Code(s): I44.1 - ATRIOVENTRICULAR BLOCK, SECOND DEGREE (7) Diastolic CHF Code(s): I50.30 - UNSPECIFIED DIASTOLIC (CONGESTIVE) HEART FAILURE (8) Mild aortic stenosis Code(s): I35.0 - NONRHEUMATIC AORTIC (VALVE) STENOSIS
--- NOTE | 2019-12-15 09:53 | EKG ---
Test Reason : Blood Pressure : / mmHG Vent. Rate : 053 BPM Atrial Rate : 053 BPM P-R Int : 230 ms QRS Dur : 090 ms QT Int : 464 ms P-R-T Axes : 009 048 268 degrees QTc Int : 435 ms SINUS BRADYCARDIA WITH SINUS ARRHYTHMIA WITH 1ST DEGREE A-V BLOCK VOLTAGE CRITERIA FOR LEFT VENTRICULAR HYPERTROPHY CANNOT RULE OUT SEPTAL INFARCT (CITED ON OR BEFORE 13-DEC-2019) T WAVE ABNORMALITY, CONSIDER INFEROLATERAL ISCHEMIA ABNORMAL ECG WHEN COMPARED WITH ECG OF 13-DEC-2019 10:19, SERIAL CHANGES OF SEPTAL INFARCT PRESENT Confirmed by Marshall Monteiro MD ([id number]) on 12/15/2019 9:53:38 AM Referred By: MAGDA VAUGHN Confirmed By:Marshall Monteiro MD
--- NOTE | 2019-12-15 14:45 | HOL ---
Hook-up date: 2019-12-14 11:38:00 Duration: 24:00:00 Test Indications: BRADYCARDIA,MOBIZ I AVB Medications: 96744 QRS complexes 301 Ventricular ectopics which represent <1 % of total QRS comp. * Supraventricular ectopics which represent % of total QRS comp. * Paced QRS complexs which represent % of total QRS comp. * % of Time Classified as Noise VENTRICULAR ECTOPY 301 Isolated 0 Bigeminal Cycles 0 Couplets 0 Runs 0 Beats in Runs * Beats LONGEST at * BPM at :: -- * Beats FASTEST at * BPM at :: -- SUPRAVENTRICULAR ECTOPY * Isolated * Couplets * Runs * Beats in Runs * Beats LONGEST at * BPM at :: -- * Beats FASTEST at * BPM at :: -- HEART RATES 20 MIN at 01:12:48 2019-12-15 51 AVG 80 MAX at 10:36:48 2019-12-15 LONGEST RR 3.536 secs at 03:43:22 2019-12-15 SCANNED BY VICKY PERLA ON 12/15/19 SINUS RHYTHM. PERIODS OF 2:1 AV BLOCG WITH MARKED BRADYCARDIA WITH ESCAPE VENTRICULAR BEATS. ALSO OCCASIONAL MOBITZII II. Confirmed by MD LISA, MAMTA ([id number]) on 12/15/2019 2:45:22 PM Referred By: SHANNON NUNEZ DRBAILEE Overread By: MAMTA GONZALEZ MD
[2019-12-15] MEDS: metFORMIN HCL 500 MG TABLET (FP) PO SCH (16:22)
--- NOTE | 2019-12-15 16:54 | PN ---
Physical Exam: SUBJECTIVE: Patient seen and examined at the bedside. Patient informed me that years ago he was able to inject insulin a few times per day. He has also been using his friend's BP medications since he is uninsured. OBJECTIVE: The patient is a 74 year old male, with a significant past medical history of HTN (not on any medications for >1 week) and DM, who presents to the emergency department with elevated blood pressure. As per patient, he has not been to a physician in >6 months and has been getting medication from a friend and ran out 1 week ago. He is un-insured and pending medicaid approval. Vital Signs Period Temp Pulse Resp BP Sys/Ugalde Pulse Ox Last 24 Hr 97.4 F-98.5 F 48-61 20-20 143-155/72-86 99-99 GENERAL: The patient is awake, alert, and fully oriented, in no acute distress. HEAD: Normal with no signs of trauma. EYES: PERRL, extraocular movements intact, sclera anicteric, conjunctiva clear. No ptosis. ENT: Ears normal, nares patent, oropharynx clear without exudates NECK: Trachea midline, full range of motion, supple. LUNGS: Breath sounds equal, clear to auscultation bilaterally, no wheezes HEART: Regular rate and rhythm ABDOMEN: Soft, nontender, nondistended, normoactive bowel sounds, no guarding EXTREMITIES: 2+ pulses, warm, well-perfused, no edema. NEUROLOGICAL: Normal speech, gait steady Laboratory Results - last 24 hr 12/14/19 12/14/19 12/15/19 17:03 22:49 06:09 WBC 5.3 RBC 5.07 Hgb 12.0 Hct 37.2 MCV 73.4 L MCH 23.8 L MCHC 32.4 RDW 15.9 Plt Count 284 MPV 7.9 Absolute Neuts (auto) 2.2 Neutrophils % 42.6 L D Lymphocytes % 45.7 H Monocytes % 8.4 Eosinophils % 2.7 Basophils % 0.6 Nucleated RBC % 0 Sodium Potassium Chloride Carbon Dioxide Anion Gap BUN Creatinine Est GFR (CKD-EPI)AfAm Est GFR (CKD-EPI)NonAf POC Glucometer 250 235 Random Glucose Calcium Magnesium Total Bilirubin AST ALT Alkaline Phosphatase Total Protein Albumin 12/15/19 12/15/19 12/15/19 06:09 06:29 11:01 WBC RBC Hgb Hct MCV MCH MCHC RDW Plt Count MPV Absolute Neuts (auto) Neutrophils % Lymphocytes % Monocytes % Eosinophils % Basophils % Nucleated RBC % Sodium 139 Potassium 4.5 Chloride 107 Carbon Dioxide 25 Anion Gap 7 L BUN 25.8 H Creatinine 1.3 Est GFR (CKD-EPI)AfAm 62.30 Est GFR (CKD-EPI)NonAf 53.75 POC Glucometer 109 273 Random Glucose 109 H Calcium 8.6 Magnesium 1.9 Total Bilirubin 0.4 AST 14 L ALT 13 Alkaline Phosphatase 125 H Total Protein 6.9 Albumin 3.1 L 12/15/19 16:14 WBC RBC Hgb Hct MCV MCH MCHC RDW Plt Count MPV Absolute Neuts (auto) Neutrophils % Lymphocytes % Monocytes % Eosinophils % Basophils % Nucleated RBC % Sodium Potassium Chloride Carbon Dioxide Anion Gap BUN Creatinine Est GFR (CKD-EPI)AfAm Est GFR (CKD-EPI)NonAf POC Glucometer 279 Random Glucose Calcium Magnesium Total Bilirubin AST ALT Alkaline Phosphatase Total Protein Albumin Active Medications Generic Name Dose Route Start Last Admin Trade Name Freq PRN Reason Stop Dose Admin Amino Acids 30 ml 12/14/19 17:30 12/15/19 08:32 Prosource No Carb Liquid Pkt PO 30 ml BID@0800,1730 JENNYFER Administration Amlodipine Besylate 10 mg 12/14/19 10:00 12/15/19 09:18 Norvasc - PO 10 mg DAILY [facility]NY[facility] Administration Aspirin 81 mg 12/15/19 10:00 12/15/19 09:18 Asa - PO 81 mg DAILY J[facility]NYFER Administration Heparin Sodium (Porcine) 5,000 unit 12/13/19 22:00 12/15/19 09:18 Heparin - SQ 5,000 unit BID JENNYFER Administration Hydralazine HCl 10 mg 12/14/19 14:00 12/15/19 14:18 Apresoline - PO 10 mg TID JENNYFER Administration Insulin Aspart 1 vial 12/13/19 16:30 12/15/19 16:18 Novolog Vial Sliding Scale - SQ 6 unit ACHS J[facility]NYFER Administration Protocol Insulin Detemir 10 units 12/15/19 22:00 Levemir Vial SQ HS JENNYFER Metformin HCl 500 mg 12/15/19 16:30 12/15/19 16:22 Glucophage - PO 500 mg BID@0700,1630 [facility] Administration Quinapril HCl 40 mg 12/14/19 10:00 12/15/19 09:18 Accupril - PO 40 mg DAILY [facility]NYFER Administration Rosuvastatin Calcium 20 mg 12/14/19 22:00 12/14/19 22:51 Crestor - PO 20 mg HS JENNYFER Administration ASSESSMENT/PLAN: Problem List - Problems (1) Hypertensive urgency Assessment/Plan: resolved systolic 220s on admission On quinopril and Norvasc Code(s): I16.0 - HYPERTENSIVE URGENCY (2) Elevated hemoglobin A1c Assessment/Plan: start on metformin as patient as limited income and may not be able to afford to be solely on insulin which is more expensive. Code(s): R73.09 - OTHER ABNORMAL GLUCOSE (3) Diabetes Assessment/Plan: bgms ac/hs with novolog slidig scale. hmga1c 13, patient with non compliance of diabetic medications due to lack of insurance. Code(s): E11.9 - TYPE 2 DIABETES MELLITUS WITHOUT COMPLICATIONS (4) TARSHA (acute kidney injury) Assessment/Plan: tarsha resolved. monitor with daily labs Code(s): N17.9 - ACUTE KIDNEY FAILURE, UNSPECIFIED (5) Abnormal EKG Assessment/Plan: T wave inversions in leads II, III, aVF, V4-V6 trop neg x 2 TTE with nml EF, mild cardiology following, notes reviewed patient without any symptoms, denies chest pain Code(s): R94.31 - ABNORMAL ELECTROCARDIOGRAM [ECG] [EKG] (6) Bradycardia Assessment/Plan: HR 50-60s avoid amirah blocking agents Holter monitor recommended by cardiology sleep screen requested with formal JENI study as outpatient Code(s): R00.1 - BRADYCARDIA, UNSPECIFIED (7) Prophylactic measure Code(s): Z29.9 - ENCOUNTER FOR PROPHYLACTIC MEASURES, UNSPECIFIED Visit type - Emergency Visit Emergency Visit: Yes ED Registration Date: 12/13/19 Care time: The patient presented to the Emergency Department on the above date and was hospitalized for further evaluation of their emergent condition. - New Patient This patient is new to me today: Yes Date on this admission: 12/15/19 - Critical Care Critical Care patient: No - Discharge Referral Referred to [facility] Med P.C[facility] No
[2019-12-15] MEDS: ROSUVASTATIN CA 20 MG TABLET (FP) PO SCH (23:16)
[2019-12-15] MEDS: INSULIN (LEVEMIR) 100 UNITS/ML UNITS SQ SCH (23:22)
[2019-12-16 06:00] LABS: BASO % 0.6 % (0-2.0); EOS % 4.4 % (0-4.5); HEMATOCRIT 34.2 % (35.4-49); LYMPH % 53.5 % (8-40); MCH 23.4 pg (25.7-33.7); MCHC 32.2 g/dl (32.0-35.9); MEAN CELL VOLUME 72.8 fl (80-96); MONO % 11.5 % (3.8-10.2); PLATELET COUNT 259 K/MM3 (134-434); RDW 15.5 % (11.9-15.9); WHITE BLOOD COUNT 5.6 K/mm3 (4.0-10.0)
[2019-12-16 06:28] LABS: ALBUMIN 2.9 g/dl (3.4-5.0); BILIRUBIN,TOTAL 0.2 mg/dL (0.2-1); BLOOD UREA NITROGEN 30.2 mg/dL (7-18); CALCIUM 8.3 mg/dL (8.5-10.1); CREATININE 1.3 mg/dL (0.55-1.3); MAGNESIUM 2.1 mg/dL (1.8-2.4); POTASSIUM 4.2 mmol/L (3.5-5.1); TOT PROT 6.3 g/dl (6.4-8.2)
[2019-12-16] MEDS: metFORMIN HCL 500 MG TABLET (FP) PO SCH ×2 (06:39→17:15)
[2019-12-16] MEDS: hydrALAZINE HCL 10 MG TABLET PO SCH ×2 (06:39→21:41)
[2019-12-16] MEDS: INSULIN SLIDING SCALE (NOVOLOG) 1 VIAL SQ SCH ×4 (06:40→21:43)
[2019-12-16] MEDS ORDERED: PT OWN MED DRAWER 7, Y5N ONE (07:36)
[2019-12-16] MEDS: AMINO ACIDS/PROTEIN HYDROLYS 30 ML LIQUID.PKT PO SCH ×2 (08:02→17:15)
--- NOTE | 2019-12-16 09:49 | PN ---
Physical Exam: SUBJECTIVE: Patient seen and examined at the bedside. OBJECTIVE: monitoring specialist shows sinus bradycardia 36-44 per RN report, heart rate as low as 30s while asleep hydralazine decreased to 10mg bid, on quanipril 40mg daily, amlodopine 10mg daily The patient is a 74 year old male, with a significant past medical history of HTN (not on any medications for over a week) and uncontrolled diabetes. Patient presents to the ED with an elevated blood pressure. As per patient, he has not been to a physician in over 6 months secondary to lack of insurance. He was taking his friends blood pressure medications until he ran out over 1 week prior to admission. ---- Vital Signs Period Temp Pulse Resp BP Sys/Ugalde Pulse Ox Last 24 Hr 97.4 F-98.2 F 48-63 20-20 142-152/64-82 99-99 GENERAL: The patient is awake, alert, and fully oriented, in no acute distress. HEAD: Normal with no signs of trauma. EYES: PERRL, extraocular movements intact, sclera anicteric, conjunctiva clear. No ptosis. ENT: Ears normal, nares patent, oropharynx clear without exudates NECK: Trachea midline, full range of motion, supple. LUNGS: Breath sounds equal, clear to auscultation bilaterally, no wheezes HEART: Regular rate and rhythm ABDOMEN: Soft, nontender, nondistended, normoactive bowel sounds, no guarding EXTREMITIES: 2+ pulses, warm, well-perfused, no edema. NEUROLOGICAL: Normal speech, gait steady Laboratory Results - last 24 hr 12/15/19 12/15/19 12/15/19 06:09 11:01 16:14 WBC RBC Hgb Hct MCV MCH MCHC RDW Plt Count MPV Absolute Neuts (auto) Neutrophils % Lymphocytes % Monocytes % Eosinophils % Basophils % Nucleated RBC % Sodium 139 Potassium 4.5 Chloride 107 Carbon Dioxide 25 Anion Gap 7 L BUN 25.8 H Creatinine 1.3 Est GFR (CKD-EPI)AfAm 62.30 Est GFR (CKD-EPI)NonAf 53.75 POC Glucometer 273 279 Random Glucose 109 H Calcium 8.6 Magnesium 1.9 Total Bilirubin 0.4 AST 14 L ALT 13 Alkaline Phosphatase 125 H Total Protein 6.9 Albumin 3.1 L TSH 1.51 12/15/19 12/16/19 12/16/19 23:15 05:10 05:10 WBC 5.6 RBC 4.70 Hgb 11.0 L Hct 34.2 L MCV 72.8 L MCH 23.4 L MCHC 32.2 RDW 15.5 Plt Count 259 MPV 8.0 Absolute Neuts (auto) 1.7 Neutrophils % 30.0 L D Lymphocytes % 53.5 H Monocytes % 11.5 H Eosinophils % 4.4 Basophils % 0.6 Nucleated RBC % 0 Sodium 139 Potassium 4.2 Chloride 110 H Carbon Dioxide 22 Anion Gap 7 L BUN 30.2 H Creatinine 1.3 Est GFR (CKD-EPI)AfAm 62.30 Est GFR (CKD-EPI)NonAf 53.75 POC Glucometer 227 Random Glucose 247 H Calcium 8.3 L Magnesium 2.1 Total Bilirubin 0.2 AST 14 L ALT 13 Alkaline Phosphatase 123 H Total Protein 6.3 L Albumin 2.9 L TSH 12/16/19 06:38 WBC RBC Hgb Hct MCV MCH MCHC RDW Plt Count MPV Absolute Neuts (auto) Neutrophils % Lymphocytes % Monocytes % Eosinophils % Basophils % Nucleated RBC % Sodium Potassium Chloride Carbon Dioxide Anion Gap BUN Creatinine Est GFR (CKD-EPI)AfAm Est GFR (CKD-EPI)NonAf POC Glucometer 235 Random Glucose Calcium Magnesium Total Bilirubin AST ALT Alkaline Phosphatase Total Protein Albumin TSH Active Medications Generic Name Dose Route Start Last Admin Trade Name Freq PRN Reason Stop Dose Admin Amino Acids 30 ml 12/14/19 17:30 12/15/19 18:20 Prosource No Carb Liquid Pkt PO 30 ml BID@0800,1730 JENNYFER Administration Amlodipine Besylate 10 mg 12/14/19 10:00 12/15/19 09:18 Norvasc - PO 10 mg DAILY JENNYFER Administration Aspirin 81 mg 12/15/19 10:00 12/15/19 09:18 Asa - PO 81 mg DAILY JENNYFER Administration Heparin Sodium (Porcine) 5,000 unit 12/13/19 22:00 12/15/19 23:16 Heparin - SQ 5,000 unit BID JENNYFER Administration Insulin Aspart 1 vial 12/13/19 16:30 12/16/19 06:40 Novolog Vial Sliding Scale - SQ 4 unit ACHS JENNYFER Administration Protocol Insulin Detemir 10 units 12/15/19 22:00 12/15/19 23:22 Levemir Vial SQ Not Given HS JENNYFER Metformin HCl 500 mg 12/15/19 16:30 12/16/19 06:39 Glucophage - PO 500 mg BID@0700,1630 JENNYFER Administration Quinapril HCl 40 mg 12/14/19 10:00 12/15/19 09:18 Accupril - PO 40 mg DAILY JENNYFER Administration Rosuvastatin Calcium 20 mg 12/14/19 22:00 12/15/19 23:16 Crestor - PO 20 mg HS JENNYFER Administration ASSESSMENT/PLAN: Problem List - Problems (1) Hypertensive urgency Assessment/Plan: improving systolic 220s on admission, now improving. On quinopril 40, Norvasc 10 and Hydralazine 10 bid. Code(s): I16.0 - HYPERTENSIVE URGENCY (2) Elevated hemoglobin A1c Assessment/Plan: start on metformin as patient as limited income and may not be able to afford to be solely on insulin which is more expensive. Code(s): R73.09 - OTHER ABNORMAL GLUCOSE (3) Diabetes Assessment/Plan: bgms ac/hs with novolog slidig scale. hmga1c 13, patient with non compliance of diabetic medications due to lack of insurance. start on metformin 500bid along with sliding scale Code(s): E11.9 - TYPE 2 DIABETES MELLITUS WITHOUT COMPLICATIONS (4) TARSHA (acute kidney injury) Assessment/Plan: tarsha resolved. monitor with daily labs Code(s): N17.9 - ACUTE KIDNEY FAILURE, UNSPECIFIED (5) Abnormal EKG Assessment/Plan: T wave inversions in leads II, III, aVF, V4-V6 trop neg x 2 TTE with nml EF, mild cardiology following, notes reviewed patient without any symptoms, denies chest pain Code(s): R94.31 - ABNORMAL ELECTROCARDIOGRAM [ECG] [EKG] (6) Bradycardia Assessment/Plan: HR 30s to 60s on monitoring specialist avoid amirah blocking agents sleep screen requested with formal JENI study as outpatient Code(s): R00.1 - BRADYCARDIA, UNSPECIFIED (7) Prophylactic measure Assessment/Plan: fen tolerating po monitor electrolytes diabetic diet full code Code(s): Z29.9 - ENCOUNTER FOR PROPHYLACTIC MEASURES, UNSPECIFIED Visit type - Emergency Visit Emergency Visit: Yes ED Registration Date: 12/13/19 Care time: The patient presented to the Emergency Department on the above date and was hospitalized for further evaluation of their emergent condition. - New Patient This patient is new to me today: No - Critical Care Critical Care patient: No - Discharge Referral Referred to [facility] Med P.C.: No
[2019-12-16] MEDS: HEPARIN NA (PORCINE) 5,000 UNITS/ML 1ML VIAL SQ SCH ×2 (10:03→21:41)
[2019-12-16] MEDS: QUINAPRIL HCL 40 MG TABLET (FP) PO SCH (10:03)
[2019-12-16] MEDS: ASPIRIN 81 MG CHEWABLE TABLETS PO SCH (10:03)
[2019-12-16] MEDS: amLODIPine BESYLATE 10 MG TABLET (FP) PO SCH (10:03)
--- NOTE | 2019-12-16 11:26 | EKG ---
Test Reason : Blood Pressure : / mmHG Vent. Rate : 040 BPM Atrial Rate : 064 BPM P-R Int : 240 ms QRS Dur : 082 ms QT Int : 500 ms P-R-T Axes : -02 042 258 degrees QTc Int : 407 ms SINUS RHYTHM WITH 1ST DEGREE A-V BLOCK WITH BLOCKED PREMATURE ATRIAL COMPLEXES LEFT VENTRICULAR HYPERTROPHY WITH REPOLARIZATION ABNORMALITY CANNOT RULE OUT SEPTAL INFARCT (CITED ON OR BEFORE 13-DEC-2019) ABNORMAL ECG Confirmed by MD LISA, MAMTA ([id number]) on 12/16/2019 11:26:23 AM Referred By: Confirmed By:MAMTA GONZALEZ MD
--- NOTE | 2019-12-16 16:16 | PN ---
Progress Note, Physician Chief Complaint: Pt A&Ox3; asymptomatic.Pt walked up and down the hallway several times at a moderate to brisk pace ("I could run") without dyspnea, chest pain, dizziness, or palpitations; HR reached 90 bpm. History of Present Illness: 74 year old black man (b. [place]), with a significant past medical history of HTN (not on any medications for >1 week) and DM, noncompliant to doctors or medicines (used to wofk for a alf, but says he has no pension or insurance), who presents to the emergency department with elevated blood pressure. As per patient, he has not been to a physician in >6 months and has been getting medication from a friend (they have been sharing). He notes running out of medications (Quinapril HCl 40 mg PO daily) over a week ago and his blood pressure has been significantly elevated, prompting his arrival to the ED. - Current Medication List Current Medications: Active Medications Amino Acids (Prosource No Carb Liquid Pkt) 30 ml PO BID@0800,1730 [facility] Last Admin: 12/16/19 08:02 Dose: 30 ml Amlodipine Besylate (Norvasc -) 10 mg PO DAILY [facility] Last Admin: 12/16/19 10:03 Dose: 10 mg Aspirin (Asa -) 81 mg PO DAILY [facility] Last Admin: 12/16/19 10:03 Dose: 81 mg Heparin Sodium (Porcine) (Heparin -) 5,000 unit SQ BID [facility] Last Admin: 12/16/19 10:03 Dose: 5,000 unit Insulin Aspart (Novolog Vial Sliding Scale -) 1 vial SQ [facility]; Protocol Last Admin: 12/16/19 11:30 Dose: Not Given Insulin Detemir (Levemir Vial) 10 units SQ [facility] Last Admin: 12/15/19 23:22 Dose: Not Given Metformin HCl (Glucophage -) 500 mg PO BID@0700,1630 [facility] Last Admin: 12/16/19 06:39 Dose: 500 mg Quinapril HCl (Accupril -) 40 mg PO DAILY [facility] Last Admin: 12/16/19 10:03 Dose: 40 mg Rosuvastatin Calcium (Crestor -) 20 mg PO [facility] Last Admin: 12/15/19 23:16 Dose: 20 mg - Objective Vital Signs: Vital Signs Temperature 97.6 F 12/16/19 14:00 Pulse Rate 62 12/16/19 14:00 Respiratory Rate 20 12/16/19 14:00 Blood Pressure 183/78 H 12/16/19 14:00 O2 Sat by Pulse Oximetry (%) 99 12/16/19 09:00 Constitutional: Yes: Calm Eyes: Yes: WNL HENT: Yes: WNL Cardiovascular: Yes: S1, S2 (split) Respiratory: Yes: WNL Gastrointestinal: Yes: WNL ...Rectal Exam: Yes: Deferred Genitourinary: Yes: WNL Breast(s): Yes: WNL Musculoskeletal: Yes: WNL Extremities: Yes: WNL Edema: No Peripheral Pulses WNL: Yes Integumentary: Yes: WNL Neurological: Yes: WNL Labs: CBC, BMP 12/16/19 05:10 12/16/19 05:10 Abnormal Lab Results 12/16/19 12/16/19 05:10 05:10 Hgb 11.0 L Hct 34.2 L MCV 72.8 L MCH 23.4 L Neutrophils % 30.0 L D Lymphocytes % 53.5 H Monocytes % 11.5 H Chloride 110 H Anion Gap 7 L BUN 30.2 H Random Glucose 247 H Calcium 8.3 L AST 14 L Alkaline Phosphatase 123 H Total Protein 6.3 L Albumin 2.9 L - ....Imaging Chest X-ray: Image Reviewed EKG: Image Reviewed Problem List - Problems (1) Noncompliance Assessment/Plan: Pt would like to acquire insurance "to be able to see a doctor regularly and get medications". Code(s): Z91.19 - PATIENT'S NONCOMPLIANCE W OTH MEDICAL TREATMENT AND REGIMEN (2) Diabetes Code(s): E11.9 - TYPE 2 DIABETES MELLITUS WITHOUT COMPLICATIONS (3) Elevated hemoglobin A1c Code(s): R73.09 - OTHER ABNORMAL GLUCOSE (4) Hypertensive urgency Code(s): I16.0 - HYPERTENSIVE URGENCY (5) [place] cardiac risk >20% in next 10 years Assessment/Plan: Pt says he had a stress treadmill test about 3 yeara ago "in the [place], near [facility]" that was negative for ischemia. F/u results. Will have low threshold to do stress test when BP is stable. This may be done as an outpatient. Code(s): Z91.89 - OTH PERSONAL RISK FACTORS, NOT ELSEWHERE CLASSIFIED (6) Second degree AV block, Mobitz type I Assessment/Plan: Pt says he has known of having a "slow pulse" for the past 2 years. Holter 12/14/19: 2nd degree AVB, Mobitz Type I, with marked bradycardia and vnetricular escape beats. Checked prior hospital records; no evidence of pt having been on beta blockers or nondihydropine calcium channel blockers. Pt denies hx of dizziness, palpitations, chest pain, or syncope. Walked the hallway today several times at a moderate to brisk pace without symptoms; HR reached 90 bpm. TSH: WNL ELectrolytes WNL. Pt denies hx sleep apnea, but has never been evaluated for it. Code(s): I44.1 - ATRIOVENTRICULAR BLOCK, SECOND DEGREE (7) Diastolic CHF Code(s): I50.30 - UNSPECIFIED DIASTOLIC (CONGESTIVE) HEART FAILURE (8) Mild aortic stenosis Code(s): I35.0 - NONRHEUMATIC AORTIC (VALVE) STENOSIS
--- NOTE | 2019-12-16 21:31 | CON.CARD ---
Consult Consult Specialty:: Cardiac Electrophysiology Referred by:: Dr Tamayo Reason for Consultation:: Heart block - History of Present Illness Chief Complaint: Heart block History of Present Illness: Mr. Ferreira is a 74 year old male with a pmh of hypertension who presented for elevated and was noted to have abnormal telemetry with pauses. EP consultation was requested. A holter was done which showed episodes of wenkebach, 2:1 block, blocked apc's, and heart block. He is not on av amirah blocking agents. There have been no events while awake. Patient denies any chest pain, dyspnea, palpitations, near or true syncope. TSH wnl. Normal LVEF on echo. no known diagnoses of sleep apnea. - History Source History Provided By: Patient, Medical Record Limitations to Obtaining History: No Limitations - Past Medical History Cardio/Vascular: Yes: HTN Endocrine: Yes: Diabetes Mellitus - Past Surgical History Past Surgical History: Yes: None - Alcohol/Substance Use Hx Alcohol Use: No History of Substance Use: reports: None - Smoking History Smoking history: Never smoked Have you smoked in the past 12 months: No - Social History ADL: Independent Occupation: retired History of Recent Travel: No Home Medications - Allergies Allergies/Adverse Reactions: Allergies Allergy/AdvReac Type Severity Reaction Status Date / Time No Known Allergies Allergy Verified 12/13/19 09:22 - Home Medications Home Medications: Ambulatory Orders Alcohol Antiseptic Pads [Alcohol Prep Pad] 1 each TP TID #100 med..pad 12/16/19 Amlodipine Besylate [Norvasc -] 10 mg PO DAILY #60 tablet 12/16/19 Aspirin [ASA -] 81 mg PO DAILY #30 tab.chew 12/16/19 Insulin Lispro [Humalog Kwikpen U-200] 4 unit SQ TID #1 insuln.pen 12/16/19 Miscellaneous Medical Supply [Glucometer Device] 1 each PO TID #1 kit 12/16/19 Humphrey, Safety [Easy Touch Fliplock Needle] 1 each MC TID #100 dis.needle 12/16 Quinapril HCl [Accupril -] 40 mg PO DAILY #30 tablet 12/16/19 Rosuvastatin [Crestor -] 20 mg PO HS #90 tablet 12/16/19 hydrALAZINE HCL [Apresoline -] 10 mg PO TID #90 tablet 12/16/19 metFORMIN HCL [Glucophage -] 500 mg PO BID@0700,1630 #60 tablet 12/16/19 Family Medical History Other Family History: no fam hx of premature cad, scd Review of Systems - Review of Systems Constitutional: reports: No Symptoms Eyes: reports: No Symptoms HENT: reports: No Symptoms Neck: reports: No Symptoms Cardiovascular: reports: No Symptoms Respiratory: reports: No Symptoms Gastrointestinal: reports: No Symptoms Musculoskeletal: reports: No Symptoms Neurological: reports: No Symptoms Psychiatric: reports: No Symptoms Vital Signs: Vital Signs Temperature 98.1 F 12/16/19 20:24 Pulse Rate 54 L 12/16/19 20:24 Respiratory Rate 12/16/19 20:24 Blood Pressure 162/88 12/16/19 20:24 O2 Sat by Pulse Oximetry (%) 98 12/16/19 20:24 Constitutional: Yes: Well Nourished, No Distress, Calm Eyes: Yes: EOM Intact HENT: Yes: Atraumatic Neck: Yes: WNL, Supple, Trachea Midline Respiratory: Yes: WNL, Regular, CTA Bilaterally Gastrointestinal: Yes: WNL, Normal Bowel Sounds, Soft Cardiovascular: Yes: WNL, Regular Rate and Rhythm JVD: No Carotid Bruit: No Murmur: No: Systolic Murmur Extremities: Yes: WNL Edema: No Neurological: Yes: Alert, Oriented Psychiatric: Yes: Alert, Oriented - Other Data Labs, Other Data: CBC, BMP 12/16/19 05:10 12/16/19 05:10 Echo: Report Reviewed Holter: Image Reviewed Ejection Fraction %: LVEF > or = 40 % Imaging - Results Chest X-ray: Report Reviewed EKG: Image Reviewed Problem List - Problems (1) Heart block Code(s): I45.9 - CONDUCTION DISORDER, UNSPECIFIED (2) Abnormal EKG Code(s): R94.31 - ABNORMAL ELECTROCARDIOGRAM [ECG] [EKG] (3) Bradycardia Code(s): R00.1 - BRADYCARDIA, UNSPECIFIED (4) Hypertensive urgency Code(s): I16.0 - HYPERTENSIVE URGENCY (5) Second degree AV block, Mobitz type I Code(s): I44.1 - ATRIOVENTRICULAR BLOCK, SECOND DEGREE Assessment/Plan 74 year old male with a pmh of hypertension presenting with hypertensive urgency , found to have heart block on monitoring overnight, normal LVEF. The patient is having episodes of wenkebach, 2-1 AV block, blocked apc's and heart block with a 3.5 sec pause overnight only. he has had no documented episodes during the day and remains asymptomatic. he likely has a higher vagal tone and possible sleep apnea. he is not on av amirah blocking agents now or as an outpt. narrow complex qrs. no indication for ppm at this time. case has been d/w cardiology. labile bp. tsh wnl. - avoid av amirah blocking agents - sleep study - keep k 4-4.5, mg 2-2.5 - no indication for ppm at this time but pt is aware that he may benefit from a ppm in the future should he have worsening findings or develop symptoms - care as per cardiology, primary services Thank you for allowing me to participate in the care of this patient. Please call with any questions.
[2019-12-16] MEDS: INSULIN (LEVEMIR) 100 UNITS/ML UNITS SQ SCH (21:41)
[2019-12-16] MEDS: ROSUVASTATIN CA 20 MG TABLET (FP) PO SCH (21:41)
[2019-12-17] MEDS: metFORMIN HCL 500 MG TABLET (FP) PO SCH (06:31)
[2019-12-17] MEDS: INSULIN SLIDING SCALE (NOVOLOG) 1 VIAL SQ SCH ×2 (06:31→11:57)
[2019-12-17 07:21] LABS: BASO % 1.2 % (0-2.0); EOS % 4.1 % (0-4.5); HEMATOCRIT 37.5 % (35.4-49); HEMOGLOBIN 12.2 GM/dL (11.7-16.9); LYMPH % 51.3 % (8-40); MCH 23.8 pg (25.7-33.7); MCHC 32.6 g/dl (32.0-35.9); MEAN CELL VOLUME 73.2 fl (80-96); MEAN PLT VOLUME 7.8 fl (7.5-11.1); MONO % 9.1 % (3.8-10.2); NEUT % 34.3 % (42.8-82.8); PLATELET COUNT 287 K/MM3 (134-434); RBC 5.13 M/mm3 (4.00-5.60); WHITE BLOOD COUNT 5.7 K/mm3 (4.0-10.0)
[2019-12-17 08:02] LABS: ALBUMIN 3.3 g/dl (3.4-5.0); BILIRUBIN,TOTAL 0.3 mg/dL (0.2-1); BLOOD UREA NITROGEN 31.2 mg/dL (7-18); CALCIUM 8.7 mg/dL (8.5-10.1); CREATININE 1.4 mg/dL (0.55-1.3); MAGNESIUM 2.1 mg/dL (1.8-2.4); POTASSIUM 4.8 mmol/L (3.5-5.1); TOT PROT 7.4 g/dl (6.4-8.2)
--- NOTE | 2019-12-17 08:45 | PN ---
Progress Note, Physician Chief Complaint: Pt A&Ox3; sitting up at bedside; no symptoms. History of Present Illness: 74 year old black man (catar[place] Garib[place]), with a significant past medical history of HTN (not on any medications for >1 week) and DM, noncompliant to doctors or medicines (used to wofk for a prison, but says he has no pension or insurance), who presents to the emergency department with elevated blood pressure. As per patient, he has not been to a physician in >6 months and has been getting medication from a friend (they have been sharing). He notes running out of medications (Quinapril HCl 40 mg PO daily) over a week ago and his blood pressure has been significantly elevated, prompting his arrival to the ED. - Current Medication List Current Medications: Active Medications Amino Acids (Prosource No Carb Liquid Pkt) 30 ml PO BID@0800,1730 [facility] Last Admin: 12/16/19 17:15 Dose: 30 ml Amlodipine Besylate (Norvasc -) 10 mg PO DAILY [facility] Last Admin: 12/16/19 10:03 Dose: 10 mg Aspirin (Asa -) 81 mg PO DAILY [facility] Last Admin: 12/16/19 10:03 Dose: 81 mg Heparin Sodium (Porcine) (Heparin -) 5,000 unit SQ BID [facility] Last Admin: 12/16/19 21:41 Dose: 5,000 unit Hydralazine HCl (Apresoline -) 10 mg PO BID [facility] Last Admin: 12/16/19 21:41 Dose: 10 mg Insulin Aspart (Novolog Vial Sliding Scale -) 1 vial SQ [facility]; Protocol Last Admin: 12/17/19 06:31 Dose: 2 unit Insulin Detemir (Levemir Vial) 10 units SQ [facility] Last Admin: 12/16/19 21:41 Dose: Not Given Metformin HCl (Glucophage -) 500 mg PO BID@0700,1630 [facility] Last Admin: 12/17/19 06:31 Dose: 500 mg Quinapril HCl (Accupril -) 40 mg PO DAILY [facility] Last Admin: 12/16/19 10:03 Dose: 40 mg Rosuvastatin Calcium (Crestor -) 20 mg PO [facility] Last Admin: 12/16/19 21:41 Dose: 20 mg - Objective Vital Signs: Vital Signs Temperature 97.7 F 12/17/19 08:38 Pulse Rate 50 L 12/17/19 08:38 Respiratory Rate 17 12/17/19 08:38 Blood Pressure 141/70 12/17/19 08:38 O2 Sat by Pulse Oximetry (%) 98 12/16/19 21:00 Constitutional: Yes: Calm Eyes: Yes: WNL Labs: CBC, BMP 12/17/19 06:53 12/17/19 06:53 Problem List - Problems (1) Noncompliance Assessment/Plan: Pt would like to acquire insurance "to be able to see a doctor regularly and get medications". [place] for pt to be seen in clinic. Discussed this with him. Code(s): Z91.19 - PATIENT'S NONCOMPLIANCE W OTH MEDICAL TREATMENT AND REGIMEN (2) Diabetes Code(s): E11.9 - TYPE 2 DIABETES MELLITUS WITHOUT COMPLICATIONS (3) Elevated hemoglobin A1c Code(s): R73.09 - OTHER ABNORMAL GLUCOSE (4) Hypertensive urgency Code(s): I16.0 - HYPERTENSIVE URGENCY (5) [place] cardiac risk >20% in next 10 years Assessment/Plan: Pt says he had a stress treadmill test about 3 yeara ago "in the [place], near [facility]" that was negative for ischemia. F/u results. Will have low threshold to do stress test when BP is stable. This may be done as an outpatient. Code(s): Z91.89 - OTH PERSONAL RISK FACTORS, NOT ELSEWHERE CLASSIFIED (6) Second degree AV block, Mobitz type I Assessment/Plan: Pt says he has known of having a "slow pulse" for the past 2 years. Holter 12/14/19: 2nd degree AVB, Mobitz Type I, with marked bradycardia and vnetricular escape beats. Checked prior hospital records; no evidence of pt having been on beta blockers or nondihydropine calcium channel blockers. Pt denies hx of dizziness, palpitations, chest pain, or syncope. Walked the hallway today several times at a moderate to brisk pace without symptoms; HR reached 90 bpm. TSH: WNL ELectrolytes WNL. Pt denies hx sleep apnea, but has never been evaluated for it. Discussed with Dr. Hicks,EP. No need for PPM at this time. Plan for sleep study (bradycardia occurs more moarkdely when he is asleep), which may be done as an outpatient. Code(s): I44.1 - ATRIOVENTRICULAR BLOCK, SECOND DEGREE (7) Diastolic CHF Code(s): I50.30 - UNSPECIFIED DIASTOLIC (CONGESTIVE) HEART FAILURE (8) Mild aortic stenosis Code(s): I35.0 - NONRHEUMATIC AORTIC (VALVE) STENOSIS
[2019-12-17] MEDS: HEPARIN NA (PORCINE) 5,000 UNITS/ML 1ML VIAL SQ SCH (09:42)
[2019-12-17] MEDS: hydrALAZINE HCL 10 MG TABLET PO SCH (09:42)
[2019-12-17] MEDS: amLODIPine BESYLATE 10 MG TABLET (FP) PO SCH (09:42)
[2019-12-17] MEDS: QUINAPRIL HCL 40 MG TABLET (FP) PO SCH (09:42)
[2019-12-17] MEDS: ASPIRIN 81 MG CHEWABLE TABLETS PO SCH (09:42)
[2019-12-17] MEDS: AMINO ACIDS/PROTEIN HYDROLYS 30 ML LIQUID.PKT PO SCH (09:43)
--- NOTE | 2019-12-17 10:08 | DS ---
Physical Exam: SUBJECTIVE: Patient seen and examined at the bedside. I discussed the importance of follow up appointments and taking medications as ordered. Advised him not to take someone elses medications and to see the doctor assigned to him next week before his medications run out. He verbalizes understanding. Tells me that he has self administered insulin in the past and is willing to self administer. He knows how to monitor his blood glucose. He will be going to social service director office next week to seek information about obtaining medical insurance. OBJECTIVE: The patient is a 74 year old male, with a significant past medical history of HTN (not on any medications for over a week) and uncontrolled diabetes. Patient presents to the ED with an elevated blood pressure. As per patient, he has not been to a physician in over 6 months secondary to lack of insurance. He was taking his friends blood pressure medications until he ran out over 1 week prior to admission. Patient states he has known of having a "slow pulse" for the past 2 years. He had a holter placed which showed 2nd degree AVB, Mobitz Type I, with marked bradycardia and vnetricular escape beats. He was evaluated by an sports marketing specialist and found not to be a candidate for a PPM at this time. Pt denies any symptoms of dizziness palpitations, chest pain, or syncope. Patient is uninsured and unable to afford his medications. The hospital has absorbed the cost of these medications for a 30 days supply with [facility]. A follow up appointment with the [facility] has been made for December 21. Patient has been advised to follow up with this visit in order to have an established PCP. The cost for the outpatient clinic visit is $ 150 and pt is aware of cost. He can also attend [facility] and has been advised to go early next week. Vital Signs Period Temp Pulse Resp BP Sys/Ugalde Pulse Ox Last 24 Hr 97.6 F-98.2 F 50-62 17-20 141-183/70-90 98 PHYSICAL EXAM GENERAL: The patient is awake, alert, and fully oriented, in no acute distress. HEAD: Normal with no signs of trauma. EYES: PERRL, extraocular movements intact, sclera anicteric, conjunctiva clear. No ptosis. ENT: Ears normal, nares patent, oropharynx clear without exudates NECK: Trachea midline, full range of motion, supple. LUNGS: Breath sounds equal, clear to auscultation bilaterally, no wheezes HEART: Regular rate and rhythm ABDOMEN: Soft, nontender, nondistended, normoactive bowel sounds, no guarding EXTREMITIES: 2+ pulses, warm, well-perfused, no edema. NEUROLOGICAL: Normal speech, gait steady LABS Laboratory Results - last 24 hr 12/16/19 12/16/19 12/16/19 11:28 17:03 21:13 WBC RBC Hgb Hct MCV MCH MCHC RDW Plt Count MPV Absolute Neuts (auto) Neutrophils % Lymphocytes % Monocytes % Eosinophils % Basophils % Nucleated RBC % Sodium Potassium Chloride Carbon Dioxide Anion Gap BUN Creatinine Est GFR (CKD-EPI)AfAm Est GFR (CKD-EPI)NonAf POC Glucometer 153 235 196 Random Glucose Calcium Magnesium Total Bilirubin AST ALT Alkaline Phosphatase Total Protein Albumin 12/17/19 12/17/19 12/17/19 05:54 06:53 06:53 WBC 5.7 RBC 5.13 Hgb 12.2 Hct 37.5 MCV 73.2 L MCH 23.8 L MCHC 32.6 RDW 16.0 H Plt Count 287 MPV 7.8 Absolute Neuts (auto) 1.9 Neutrophils % 34.3 L Lymphocytes % 51.3 H Monocytes % 9.1 Eosinophils % 4.1 Basophils % 1.2 Nucleated RBC % 0 Sodium 138 Potassium 4.8 Chloride 109 H Carbon Dioxide 24 Anion Gap 5 L BUN 31.2 H Creatinine 1.4 H Est GFR (CKD-EPI)AfAm 56.96 Est GFR (CKD-EPI)NonAf 49.14 POC Glucometer 172 Random Glucose 169 H Calcium 8.7 Magnesium 2.1 Total Bilirubin 0.3 AST 18 ALT 15 Alkaline Phosphatase 130 H Total Protein 7.4 Albumin 3.3 L HOSPITAL COURSE: Date of Admission:12/13/19 Date of Discharge: 12/17/19 Minutes to complete discharge: 60 Discharge Summary Problems reviewed: Yes Reason For Visit: ACUTE KIDNEY INJURY/HYPERTENSIVE URGENCY/ Current Active Problems TARSHA (acute kidney injury) (Acute) Abnormal EKG (Acute) Bradyarrhythmia (Acute) Bradycardia (Acute) Diabetes (Acute) Diastolic CHF (Acute) Elevated hemoglobin A1c (Acute) [place] cardiac risk >20% in next 10 years (Acute) Heart block (Acute) Hypertensive urgency (Acute) Mild aortic stenosis (Acute) Noncompliance (Acute) Prophylactic measure (Acute) Second degree AV block, Mobitz type I (Acute) Condition: Improved - Instructions Diet, Activity, Other Instructions: Mr Ferreira: You were admitted for high blood pressure, high cholesterol and diabetes that was uncontrolled. During your hospital stay, you were seen by a bunch maker and a bunch maker that specializes in a slow heart rate. Here are our recommendations: High Blood pressure: Take Hydralazine 10 mg at 8am and 8pm everyday Take Quinapril 40mg at 8am everyday Take Amolodopine 10mg at 8am everyday High Cholesterol: Take Crestor 20mg once per day Diabetes: Take Metformin 500mg TWICE per day at 8am and 8pm Take insulin three times per day. FIRST CHECK YOUR BLOOD SUGAR 15 MINUTES BEFORE EATING AND FOLLOW THIS SLIDING SCALE Blood sugar dose to give: 101-150 none 151-200 2 201-250 4 251-300 6 301-350 8 351-400 10 401 and over: 12 FOLLOW UPS: It is important that you follow up with a new primary care doctor. You have an appointment to be seen at the resident clinic with Dr. Dewey. Date: Saturday,2:30pm, December 21. Time: 2:30 pm Location: [address] [place] [address] Bring: your discharge paperwork The cost is $150.00 for this visit. You can also be seen at a walk in clinic at: [facility] [place] [address] Medical No: [phone] Please do not wait until your medication runs out before you are seen, please go next week as we are only giving you 30 days supplies of medications. Questions? Please call me Xi Solis NP [facility] [phone] Referrals: [facility] [place] [Provider Group] (You have an appointment to be seen at the resident clinic with Dr. Dewey. Date: Saturday,2:30pm, December 21. Time: 2:30 pm Location: [address] [place] [address] Bring: your discharge paperwork ) Dhaval Tamayo MD [Staff Physician] - Disposition: HOME - Home Medications Comprehensive Discharge Medication List: Ambulatory Orders Alcohol Antiseptic Pads [Alcohol Prep Pad] 1 each TP TID #100 med..pad 12/16/19 Amlodipine Besylate [Norvasc -] 10 mg PO DAILY #60 tablet 12/16/19 Aspirin [ASA -] 81 mg PO DAILY #30 tab.chew 12/16/19 Insulin Lispro [Humalog Kwikpen U-200] 4 unit SQ TID #1 insuln.pen 12/16/19 Miscellaneous Medical Supply [Glucometer Device] 1 each PO TID #1 kit 12/16/19 [place], Safety [Easy Touch Fliplock Needle] 1 each MC TID #100 dis.needle 12/16 Quinapril HCl [Accupril -] 40 mg PO DAILY #30 tablet 12/16/19 Rosuvastatin [Crestor -] 20 mg PO HS #90 tablet 12/16/19 hydrALAZINE HCL [Apresoline -] 10 mg PO TID #90 tablet 12/16/19 metFORMIN HCL [Glucophage -] 500 mg PO BID@0700,1630 #60 tablet 12/16/19 Problem List - Problems (1) Hypertensive urgency Assessment/Plan: improving systolic 220s on admission, now improving. On quinopril 40, Norvasc 10 and Hydralazine 10 bid. will need outpatient follow up Code(s): I16.0 - HYPERTENSIVE URGENCY (2) Elevated hemoglobin A1c Assessment/Plan: started on metformin as patient as limited income and may not be able to afford to be solely on insulin which is more expensive. Code(s): R73.09 - OTHER ABNORMAL GLUCOSE (3) Diabetes Assessment/Plan: bgms ac/hs with novolog slidig scale. hmga1c 13, patient with non compliance of diabetic medications due to lack of insurance. start on metformin 500bid along with sliding scale taught how to use a sliding scale and self inject with Primary RN Code(s): E11.9 - TYPE 2 DIABETES MELLITUS WITHOUT COMPLICATIONS (4) TARSHA (acute kidney injury) Assessment/Plan: Code(s): N17.9 - ACUTE KIDNEY FAILURE, UNSPECIFIED (5) Abnormal EKG Assessment/Plan: T wave inversions in leads II, III, aVF, V4-V6 trop neg x 2 TTE with nml EF, mild cardiology following, notes reviewed patient without any symptoms, denies chest pain Code(s): R94.31 - ABNORMAL ELECTROCARDIOGRAM [ECG] [EKG] (6) Bradycardia Assessment/Plan: HR 30s to 60s on quality assurance monitor final avoid amirah blocking agents sleep screen requested with formal JENI study as outpatient Code(s): R00.1 - BRADYCARDIA, UNSPECIFIED (7) Prophylactic measure Assessment/Plan: discharge home, outpatient follow up Code(s): Z29.9 - ENCOUNTER FOR PROPHYLACTIC MEASURES, UNSPECIFIED This patient is new to me today: No Emergency Visit: Yes ED Registration Date: 12/13/19 Care time: The patient presented to the Emergency Department on the above date and was hospitalized for further evaluation of their emergent condition. Critical Care patient: No - Discharge Referral Referred to [facility] No
[2019-12-17] MEDS ORDERED: INSULIN (NOVOLOG) ASPART 100 UNITS/ML 10ML VIAL ONE ×2 (12:00→12:09)
[2019-12-17 12:36] VITALS: BP 162/68; PULSE 68; TEMP 97.9
== END 2019-12-17 14:20 | disposition home or self-care (01) | DRG 469 ==
LOC: JER 09:12 → JERBED 13:09 → J4W 12-14 02:15
PROVIDERS: ADMIT Internal Medicine; ATTEND Nurse Practitioner Family
DX: N17.9 Acute kidney failure, unspecified (principal); I16.0 Hypertensive urgency; E11.22 Type 2 diabetes mellitus with diabetic chronic kidney disease; I44.1 Atrioventricular block, second degree; I50.32 Chronic diastolic (congestive) heart failure; I13.0 Hypertensive heart and chronic kidney disease with heart failure and stage 1 through stage 4 chronic kidney disease, or unspecified chronic kidney disease; E11.65 Type 2 diabetes mellitus with hyperglycemia; R94.31 Abnormal electrocardiogram [ECG] [EKG]; Z79.4 Long term (current) use of insulin; R00.1 Bradycardia, unspecified; E78.00 Pure hypercholesterolemia, unspecified; N18.9 Chronic kidney disease, unspecified; I25.10 Atherosclerotic heart disease of native coronary artery without angina pectoris; I35.0 Nonrheumatic aortic (valve) stenosis; Z91.14 Patient's other noncompliance with medication regimen
CPT/HCPCS: 36415; 71045-TC-FY; 80053; 80061; 81003; 82436; 82550; 82553; 82565; 82962; 83036; 83721; 83735; 84133; 84300; 84443; 84484; 85025; 93005; 93010; 93225; 93226; 93306-TC; 97116-GP; 97161-GP; 99285-25; J1644; J7030

== ENCOUNTER 2019-12-18 23:26 | Emergency (ER) | payer SELFPAY ==
[2019-12-18 23:30] VITALS: TEMP 97.9; BMI 27.1
--- NOTE | 2019-12-18 23:53 | PDOC ---
History of Present Illness - General Chief Complaint: Blood Pressure Problem Stated Complaint: BLOOD PRESSURE PROBLEM Time Seen by Provider: 12/18/19 23:52 History Source: Patient Exam Limitations: No Limitations - History of Present Illness Initial Comments: 12/18/19 23:54 74yM w PMHx recently diagnosed DM, HTN, HLD, 2nd deg AV block presenting w prescription refill. DC yesterday w multiple medication prescriptions. Says that pharmacy was not able to fill quinapril prescription. Denies headache, vision change, chest pain, SOB, urinary/bowel mvmt changes. Past History - Past Medical History Allergies/Adverse Reactions: Allergies Allergy/AdvReac Type Severity Reaction Status Date / Time No Known Allergies Allergy Verified 12/18/19 23:30 Home Medications: Ambulatory Orders Alcohol Antiseptic Pads [Alcohol Prep Pad] 1 each TP TID #100 med..pad 12/16/19 Amlodipine Besylate [Norvasc -] 10 mg PO DAILY #60 tablet 12/16/19 Aspirin [ASA -] 81 mg PO DAILY #30 tab.chew 12/16/19 Insulin Lispro [Humalog Kwikpen U-200] 4 unit SQ TID #1 insuln.pen 12/16/19 Miscellaneous Medical Supply [Glucometer Device] 1 each PO TID #1 kit 12/16/19 [place], Safety [Easy Touch Fliplock Needle] 1 each MC TID #100 dis.needle 12/16 Quinapril HCl [Accupril -] 40 mg PO DAILY #30 tablet 12/16/19 Rosuvastatin [Crestor -] 20 mg PO HS #90 tablet 12/16/19 metFORMIN HCL [Glucophage -] 500 mg PO BID@0700,1630 #60 tablet 12/16/19 Quinapril HCl [Accupril -] 40 mg PO DAILY #40 tablet 12/19/19 hydrALAZINE HCL [Apresoline -] 10 mg PO BID 12/19/19 COPD: No Diabetes: Yes HTN: Yes - Psycho Social/Smoking Cessation Hx Smoking History: Never smoked Have you smoked in the past 12 months: No Hx Alcohol Use: No Drug/Substance Use Hx: No Substance Use Type: None Hx Substance Use Treatment: No Review of Systems - Review of Systems Constitutional: No: Chills, Fever HEENTM: No: Eye Pain, Nose Pain Respiratory: No: Cough, Shortness of Breath Cardiac (ROS): No: Chest Pain, Palpitations ABD/GI: No: Abdominal Distended, Constipated, Diarrhea : No: Burning, Dysuria Musculoskeletal: No: Back Pain, Joint Pain Integumentary: No: Bruising, Flushing Neurological: No: Headache, Seizure Psychiatric: No: Anxiety, Depression Endocrine: No: Intolerance to Cold, Intolerance to Heat Hematologic/Lymphatic: No: Anemia, Blood Clots *Physical Exam - Vital Signs Last Vital Signs Temp Pulse Resp BP Pulse Ox 97.9 F 58 L 18 188/68 H 99 12/18/19 23:27 12/18/19 23:27 12/18/19 23:27 12/18/19 23:27 12/18/19 23:27 - Physical Exam General Appearance: Yes: Nourished, Appropriately Dressed. No: Apparent Distress HEENT: positive: EOMI, FIORELLA, Normal Voice, Hearing Grossly Normal. negative: Scleral Icterus (R), Scleral Icterus (L) Respiratory/Chest: positive: Lungs Clear, Normal Breath Sounds. negative: Chest Tender, Respiratory Distress Cardiovascular: positive: Regular Rhythm, S1, S2, Bradycardia, Systolic Murmur. negative: Edema Gastrointestinal/Abdominal: positive: Normal Bowel Sounds, Flat, Soft. negative : Tender, Organomegaly Integumentary: positive: Normal Color Neurologic: positive: engineering technology instructor II-XII NML intact, Fully Oriented, Alert, Normal Response, Responsive. negative: Facial Droop, Numbness, Sensory Deficit, Confused, Disoriented Medical Decision Making - Medical Decision Making 12/19/19 00:06 EKG - 74yM w PMHx recently diagnosed DM, HTN, HLD, 2nd deg AV block presenting w prescription refill and HTN Given quinapril. Repeat BP lower DC home w quinapril prescription. * prescription transmission failed d/t [facility] not stocking it. Called pt, told to resent to [facility], prescription transmitted Discharge - Discharge Information Problems reviewed: Yes Clinical Impression/Diagnosis: Hypertension Qualifiers: Hypertension type: unspecified Qualified Code(s): I10 - Essential (primary) hypertension Condition: Improved Disposition: HOME - Additional Discharge Information Prescriptions: Quinapril HCl [Accupril -] 40 mg PO DAILY #40 tablet - Follow up/Referral - Patient Discharge Instructions Additional Instructions: Your Quinapril prescription was resent to the pharmacy. Follow up with your primary care doctor - Post Discharge Activity
[2019-12-19] MEDS ORDERED: QUINAPRIL HCL 40 MG TABLET (FP) PO ONE (00:05)
--- NOTE | 2019-12-19 00:08 | PDOC ---
Attending Attestation - Resident Resident Name: MeloRicky - ED Attending Attestation I have performed the following: I have examined & evaluated the patient, The case was reviewed & discussed with the resident, I agree w/resident's findings & plan - HPI HPI: 12/20/19 22:10 74yM w PMHx recently diagnosed DM, HTN, HLD, 2nd deg AV block presenting w prescription refill. DC yesterday w multiple medication prescriptions. Says that pharmacy was not able to fill quinapril prescription. Denies headache, vision change, chest pain, SOB, urinary/bowel mvmt changes. - Physicial Exam PE: 12/20/19 22:10 Agree with resident exam. Normal exam - Medical Decision Making 12/20/19 22:14 Pt given meds in the ER and given a new rx.
[2019-12-19] MEDS ORDERED: QUINAPRIL HCL 10 MG TABLET (FP) ONE (01:10)
[2019-12-19 02:30] VITALS: BP 167/69; PULSE 61
--- NOTE | 2019-12-19 10:34 | EKG ---
Test Reason : Blood Pressure : / mmHG Vent. Rate : 058 BPM Atrial Rate : 058 BPM P-R Int : 226 ms QRS Dur : 080 ms QT Int : 426 ms P-R-T Axes : 051 042 270 degrees QTc Int : 418 ms SINUS BRADYCARDIA WITH SINUS ARRHYTHMIA WITH 1ST DEGREE A-V BLOCK LEFT VENTRICULAR HYPERTROPHY WITH REPOLARIZATION ABNORMALITY CANNOT RULE OUT SEPTAL INFARCT (CITED ON OR BEFORE 13-DEC-2019) ABNORMAL ECG WHEN COMPARED WITH ECG OF 15-DEC-2019 09:33, SERIAL CHANGES OF SEPTAL INFARCT PRESENT Confirmed by BOLIVAR REGAN MD ([id number]) on 12/19/2019 10:33:40 AM Referred By: Confirmed By:BOLIVAR REGAN MD
== END 2019-12-19 02:34 | disposition home or self-care (01) ==
LOC: JER 23:26
DX: I10 Essential (primary) hypertension (principal); Z76.0 Encounter for issue of repeat prescription; E11.9 Type 2 diabetes mellitus without complications; Z79.4 Long term (current) use of insulin; E78.5 Hyperlipidemia, unspecified; I44.1 Atrioventricular block, second degree
CPT/HCPCS: 93005; 93010; 99283-25

== ENCOUNTER 2021-08-22 14:10 | Inpatient (IN) | payer OTHER ==
[2021-08-22] MEDS ORDERED: DEXTROSE 50%-WATER - 25 GM/50 ML VIAL IVPUSH ONE (14:26)
[2021-08-22 14:39] VITALS: TEMP 97.7; BMI 27.4
[2021-08-22] MEDS ORDERED: SODIUM CHLORIDE 1,000 ML IV SCH (14:45)
[2021-08-22] MEDS ORDERED: DEXTROSE 50%-WATER 25 GM/50 ML DISP.SYRIN ONE (15:11)
[2021-08-22 15:27] LABS: BASO % 0.7 % (0-2.0); EOS % 3.4 % (0-4.5); HEMATOCRIT 35.8 % (35.4-49); HEMOGLOBIN 11.7 GM/dL (11.7-16.9); LYMPH % 30.1 % (8-40); MCH 24.1 pg (25.7-33.7); MCHC 32.7 g/dl (32.0-35.9); MEAN CELL VOLUME 73.9 fl (80-96); MEAN PLT VOLUME 6.9 fl (7.5-11.1); MONO % 8.8 % (3.8-10.2); PLATELET COUNT 352 10^3/uL (134-434); RBC 4.85 M/mm3 (4.00-5.60); RDW 15.1 % (11.9-15.9); WHITE BLOOD COUNT 6.2 K/mm3 (4.0-10.0)
[2021-08-22 15:36] VITALS: BP 125/75; PULSE 62
[2021-08-22 15:39] LABS: INR 0.99 (0.83-1.09); PROTHROMBIN TIME (PATIENT) 11.6 SEC (9.7-13.0)
[2021-08-22 15:42] LABS: ACTIVATED PTT 28.1 SECONDS (25.2-36.5)
[2021-08-22 15:50] LABS: CHLORIDE 110 mmol/L (98-107); SODIUM 140 mmol/L (136-145)
[2021-08-22 15:52] LABS: CALCIUM 9.3 mg/dL (8.5-10.1)
[2021-08-22 15:53] LABS: ALBUMIN 3.1 g/dl (3.4-5.0); ANION GAP 7 MMOL/L (8-16); BLOOD UREA NITROGEN 19.3 mg/dL (7-18); CO2 24 mmol/L (21-32); MAGNESIUM 1.7 mg/dL (1.8-2.4)
[2021-08-22 15:55] LABS: SGPT/ALT 14 U/L (13-61)
[2021-08-22 15:56] LABS: CHOLESTEROL 192 mg/dL (50-200); CREATININE 1.2 mg/dL (0.55-1.3); PHOSPHOROUS 2.6 mg/dL (2.5-4.9); SGOT/AST 16 U/L (15-37); TRIGLYCERIDES 109 mg/dL (0-150)
[2021-08-22 15:57] LABS: BILIRUBIN,TOTAL 0.2 mg/dL (0.2-1); LDL CHOLESTEROL (ONLY SJRH) 108 mg/dL (5-100); TOT PROT 7.8 g/dl (6.4-8.2)
[2021-08-22 15:58] LABS: ALK PHOS 153 U/L (45-117); HDL CHOLESTEROL 47 mg/dL (40-60)
[2021-08-22 16:02] LABS: GLUCOSE,RANDOM 36 mg/dL (74-106)
[2021-08-22] MEDS ORDERED: DEXTROSE 10%-WATER - 1,000 ML IV SCH (16:15)
[2021-08-22 18:04] LABS: EPI CELLS 1 /uL (0-25.1); HYALINE CASTS 0 /uL (0-3.1); URINE APPEARANCE CLEAR; URINE BACTERIA 1 /uL (0-1359); URINE BILIRUBIN NEGATIVE (NEGATIVE); URINE COLOR YELLOW; URINE GLUCOSE (UA) TRACE (NEGATIVE); URINE KETONE NEGATIVE (NEGATIVE); URINE LEUK ESTERASE NEGATIVE (NEGATIVE); URINE NITRITE NEGATIVE (NEGATIVE); URINE PROTEIN 1+ (NEGATIVE); URINE RBC 1 /uL (0-23.9); URINE UROBILINOGEN 0.2 mg/dL (0.2-1.0); URINE WBC 1 /uL (0-25.8)
== END 2021-08-23 20:55 | disposition left against medical advice (07) | DRG 637 ==
LOC: JER 14:10 → JERBED 16:04 → OBSVTOIN 17:28 → JERBED 20:57
PROVIDERS: ADMIT Internal Medicine; ATTEND Internal Medicine
DX: E11.649 Type 2 diabetes mellitus with hypoglycemia without coma (principal); G93.41 Metabolic encephalopathy; T38.3X5A Adverse effect of insulin and oral hypoglycemic [antidiabetic] drugs, initial encounter; I10 Essential (primary) hypertension; E78.5 Hyperlipidemia, unspecified; I25.10 Atherosclerotic heart disease of native coronary artery without angina pectoris; Z95.1 Presence of aortocoronary bypass graft
CPT/HCPCS: 36415; 70450-TC; 80053; 80061; 81003; 82550; 82962; 83036; 83605; 83735; 84100; 84484; 85025; 85610; 85730; 86850; 86900; 86901; 87040; 93005; 93010; 99285-25; C9803; G0378; U0003; U0005

== ENCOUNTER 2022-04-03 04:52 | Day surgery (SDC) | payer OTHER ==
[2022-03-28 11:04] VITALS: BMI 30.2
[2022-04-03 10:45] VITALS: TEMP 97.5
[2022-04-03 13:16] VITALS: BP 152/91; PULSE 64
== END 2022-04-03 13:10 | disposition home or self-care (01) ==
LOC: JASU-ENDO 04:52
PROVIDERS: ATTEND Internal Medicine Gastroenterology
PROC: 0DB98ZX Excision of Duodenum, Via Natural or Artificial Opening Endoscopic, Diagnostic (ICD-10-PCS; 2022-04-03)
PROC: 0DB68ZX Excision of Stomach, Via Natural or Artificial Opening Endoscopic, Diagnostic (ICD-10-PCS; 2022-04-03)
PROC: 0DBL8ZX Excision of Transverse Colon, Via Natural or Artificial Opening Endoscopic, Diagnostic (ICD-10-PCS; principal; 2022-04-03 09:30)
DX: D64.9 Anemia, unspecified (principal); K57.30 Diverticulosis of large intestine without perforation or abscess without bleeding; D12.3 Benign neoplasm of transverse colon; K64.8 Other hemorrhoids; K29.50 Unspecified chronic gastritis without bleeding; B96.81 Helicobacter pylori [H. pylori] as the cause of diseases classified elsewhere
CPT/HCPCS: 82962; 88305-TC; 88342-TC

== ENCOUNTER 2022-04-20 12:39 | Emergency (ER) | payer OTHER ==
[2022-04-20 12:52] VITALS: TEMP 97.8; BMI 28.2
[2022-04-20 16:14] LABS: BASO % 0.8 % (0-2.0); EOS % 2.9 % (0-4.5); HEMATOCRIT 30.3 % (35.4-49); HEMOGLOBIN 9.6 GM/dL (11.7-16.9); LYMPH % 39.4 % (8-40); MCH 21.5 pg (25.7-33.7); MCHC 31.8 g/dl (32.0-35.9); MEAN CELL VOLUME 67.6 fl (80-96); MEAN PLT VOLUME 7.1 fl (7.5-11.1); MONO % 9.3 % (3.8-10.2); NEUT % 47.6 % (42.8-82.8); PLATELET COUNT 277 10^3/uL (134-434); RBC 4.47 M/mm3 (4.00-5.60); RDW 16.7 % (11.9-15.9); WHITE BLOOD COUNT 6.2 K/mm3 (4.0-10.0)
[2022-04-20 16:34] LABS: ALBUMIN 3.4 g/dl (3.4-5.0); BLOOD UREA NITROGEN 28.4 mg/dL (7-18); CALCIUM 9.1 mg/dL (8.5-10.1)
[2022-04-20 16:37] LABS: CREATININE 1.5 mg/dL (0.55-1.3)
[2022-04-20 16:39] LABS: BILIRUBIN,TOTAL 0.4 mg/dL (0.2-1); TOT PROT 7.5 g/dl (6.4-8.2)
[2022-04-20 17:36] LABS: ANISOCYTOSIS 1+; MACROCYTOSIS 0
[2022-04-20 17:38] LABS: PLATELET ESTIMATE ADEQUATE
[2022-04-20 18:02] LABS: HEMATOCRIT 30.2 % (35.4-49); HEMOGLOBIN 9.7 GM/dL (11.7-16.9); MCH 21.7 pg (25.7-33.7); MCHC 32.2 g/dl (32.0-35.9); MEAN CELL VOLUME 67.4 fl (80-96); PLATELET COUNT 281 10^3/uL (134-434); RBC 4.48 M/mm3 (4.00-5.60); RDW 16.7 % (11.9-15.9)
[2022-04-20 19:09] VITALS: BP 121/74; PULSE 90
== END 2022-04-20 19:09 | disposition home or self-care (01) ==
LOC: JER 12:39
DX: K62.5 Hemorrhage of anus and rectum (principal)
CPT/HCPCS: 36415; 80053; 82272; 85025; 85027; 86850; 86900; 86901; 93005; 93010; 99284-25

== ENCOUNTER 2022-06-27 15:29 | Observation (INO) | payer OTHER ==
[2022-06-27] MEDS ORDERED: SODIUM CHLORIDE 500 ML IV STA (16:12)
[2022-06-27 17:47] LABS: BASO % 0.7 % (0-2.0); EOS % 6.7 % (0-4.5); HEMATOCRIT 22.6 % (35.4-49); HEMOGLOBIN 7.1 GM/dL (11.7-16.9); LYMPH % 39.8 % (8-40); MCH 20.9 pg (25.7-33.7); MCHC 31.5 g/dl (32.0-35.9); MEAN CELL VOLUME 66.5 fl (80-96); MEAN PLT VOLUME 7.2 fl (7.5-11.1); MONO % 9.4 % (3.8-10.2); NEUT % 43.4 % (42.8-82.8); PLATELET COUNT 314 10^3/uL (134-434); RBC 3.39 M/mm3 (4.00-5.60); RDW 18.3 % (11.9-15.9); WHITE BLOOD COUNT 5.7 K/mm3 (4.0-10.0)
[2022-06-27 17:54] LABS: INR 1.03 (0.83-1.09); PROTHROMBIN TIME (PATIENT) 11.8 SEC (9.7-13.0)
[2022-06-27 17:56] LABS: ACTIVATED PTT 27.1 SECONDS (25.2-36.5)
[2022-06-27 18:12] LABS: ALBUMIN 3.2 g/dl (3.4-5.0); BLOOD UREA NITROGEN 18.6 mg/dL (7-18)
[2022-06-27 18:15] LABS: CREATININE 1.5 mg/dL (0.55-1.3)
[2022-06-27 18:16] LABS: BILIRUBIN,TOTAL 0.2 mg/dL (0.2-1); TOT PROT 7.1 g/dl (6.4-8.2)
[2022-06-27 18:48] LABS: ANISOCYTOSIS 2+; MACROCYTOSIS 0; TEAR DROP CELLS 1+
[2022-06-28] MEDS ORDERED: PANTOPRAZOLE 40 MG TABLET PO SCH (00:45)
[2022-06-28 03:43] LABS: PH,URINE 6.5 (5.0-8.0); URINE APPEARANCE CLEAR; URINE BILIRUBIN NEGATIVE (NEGATIVE); URINE COLOR YELLOW; URINE GLUCOSE (UA) NEGATIVE (NEGATIVE); URINE KETONE NEGATIVE (NEGATIVE); URINE LEUK ESTERASE NEGATIVE (NEGATIVE); URINE NITRITE NEGATIVE (NEGATIVE); URINE PROTEIN NEGATIVE (NEGATIVE); URINE UROBILINOGEN 0.2 mg/dL (0.2-1.0)
[2022-06-28 04:30] VITALS: BMI 27.2
[2022-06-28] MEDS: QUINAPRIL HCL 40 MG TABLET PO SCH ×2 (06:31→12:45)
[2022-06-28] MEDS: INSULIN SLIDING SCALE (NOVOLOG) 1 VIAL SQ SCH ×4 (06:31→17:37)
[2022-06-28] MEDS: hydrALAZINE HCL 10 MG TABLET PO SCH ×3 (06:31→22:58)
[2022-06-28] MEDS ORDERED: PANTOPRAZOLE SODIUM 40 MG VIAL IVPUSH SCH (10:00)
[2022-06-28] MEDS: GABAPENTIN 100 MG CAPSULE PO SCH ×2 (10:53→22:58)
[2022-06-28] MEDS: HYDROCHLOROTHIAZIDE 12.5 MG CAPSULE (FP) PO SCH (10:53)
[2022-06-28] MEDS: TAMSULOSIN HCL 0.4 MG CAP PO SCH (10:53)
[2022-06-28 12:39] LABS: BASO % 1.4 % (0-2.0); EOS % 8.7 % (0-4.5); HEMATOCRIT 26.8 % (35.4-49); HEMOGLOBIN 8.3 GM/dL (11.7-16.9); LYMPH % 28.2 % (8-40); MCH 21.6 pg (25.7-33.7); MCHC 30.9 g/dl (32.0-35.9); MEAN CELL VOLUME 69.7 fl (80-96); MEAN PLT VOLUME 7.3 fl (7.5-11.1); MONO % 8.1 % (3.8-10.2); NEUT % 53.6 % (42.8-82.8); PLATELET COUNT 332 10^3/uL (134-434); RBC 3.85 M/mm3 (4.00-5.60); WHITE BLOOD COUNT 6.4 K/mm3 (4.0-10.0)
[2022-06-28 13:12] LABS: CALCIUM 8.4 mg/dL (8.5-10.1)
[2022-06-28 13:13] LABS: ALBUMIN 3.1 g/dl (3.4-5.0)
[2022-06-28 13:14] LABS: MAGNESIUM 1.9 mg/dL (1.8-2.4)
[2022-06-28 13:16] LABS: CREATININE 1.4 mg/dL (0.55-1.3); PHOSPHOROUS 3.4 mg/dL (2.5-4.9)
[2022-06-28 13:17] LABS: TOT PROT 6.9 g/dl (6.4-8.2)
[2022-06-28 13:18] LABS: BILIRUBIN,TOTAL 0.3 mg/dL (0.2-1)
[2022-06-28] MEDS ORDERED: IRON SUCROSE INJECTION 200 MG in SODIUM CHLORIDE 90 ML IVPB ONE (15:00)
[2022-06-28] MEDS ORDERED: BISACODYL 5 MG TABLET.DR (FP) PO ONE (16:00)
[2022-06-28] MEDS ORDERED: PEG 3350/NA SULF BICARB CL/KCL 4000 ML SOLN.RECON PO ONE (17:00)
[2022-06-28] MEDS ORDERED: ROSUVASTATIN CA 20 MG TABLET PO SCH (22:00)
[2022-06-29] MEDS: INSULIN SLIDING SCALE (NOVOLOG) 1 VIAL SQ SCH ×3 (06:44→16:43)
[2022-06-29 09:23] LABS: EOS % 9.7 % (0-4.5); HEMATOCRIT 24.7 % (35.4-49); HEMOGLOBIN 8.1 GM/dL (11.7-16.9); LYMPH % 35.1 % (8-40); MCH 22.4 pg (25.7-33.7); MCHC 32.8 g/dl (32.0-35.9); MEAN CELL VOLUME 68.4 fl (80-96); MONO % 8.7 % (3.8-10.2); NEUT % 45.5 % (42.8-82.8); PLATELET COUNT 304 10^3/uL (134-434); RBC 3.61 M/mm3 (4.00-5.60); RDW 20.8 % (11.9-15.9); WHITE BLOOD COUNT 5.7 K/mm3 (4.0-10.0)
[2022-06-29 09:29] LABS: INR 1.09 (0.83-1.09); PROTHROMBIN TIME (PATIENT) 12.6 SEC (9.7-13.0)
[2022-06-29] MEDS ORDERED: PANTOPRAZOLE 40 MG TABLET PO SCH (10:00)
[2022-06-29 10:06] LABS: BLOOD UREA NITROGEN 11.8 mg/dL (7-18); CALCIUM 8.3 mg/dL (8.5-10.1)
[2022-06-29 10:09] LABS: CREATININE 1.3 mg/dL (0.55-1.3)
[2022-06-29] MEDS: TAMSULOSIN HCL 0.4 MG CAP PO SCH (11:07)
[2022-06-29] MEDS: GABAPENTIN 100 MG CAPSULE PO SCH (11:08)
[2022-06-29] MEDS: HYDROCHLOROTHIAZIDE 12.5 MG CAPSULE (FP) PO SCH (11:08)
[2022-06-29] MEDS: hydrALAZINE HCL 10 MG TABLET PO SCH (11:08)
[2022-06-29] MEDS: QUINAPRIL HCL 40 MG TABLET PO SCH (11:10)
[2022-06-29] MEDS ORDERED: IRON SUCROSE INJECTION 200 MG in SODIUM CHLORIDE 90 ML IVPB ONE (13:37)
[2022-06-29 16:05] VITALS: RESP 18
[2022-06-29 18:45] VITALS: BP 137/69; PULSE 63; TEMP 98.2
== END 2022-06-29 18:47 | disposition home or self-care (01) ==
LOC: JER 15:29 → JERBED 19:29 → J5S 06-28 03:24
PROVIDERS: ADMIT Internal Medicine; ATTEND Nurse Practitioner Family
PROC: 30233N1 Transfusion of Nonautologous Red Blood Cells into Peripheral Vein, Percutaneous Approach (ICD-10-PCS; principal; 2022-06-27)
PROC: 3E033GC Introduction of Other Therapeutic Substance into Peripheral Vein, Percutaneous Approach (ICD-10-PCS; 2022-06-27)
PROC: 3E0337Z Introduction of Electrolytic and Water Balance Substance into Peripheral Vein, Percutaneous Approach (ICD-10-PCS; 2022-06-27)
DX: D64.9 Anemia, unspecified (principal); K57.92 Diverticulitis of intestine, part unspecified, without perforation or abscess without bleeding; I13.10 Hypertensive heart and chronic kidney disease without heart failure, with stage 1 through stage 4 chronic kidney disease, or unspecified chronic kidney disease; I25.10 Atherosclerotic heart disease of native coronary artery without angina pectoris; E11.22 Type 2 diabetes mellitus with diabetic chronic kidney disease; N18.9 Chronic kidney disease, unspecified; Z95.1 Presence of aortocoronary bypass graft; I35.0 Nonrheumatic aortic (valve) stenosis; K29.70 Gastritis, unspecified, without bleeding; Z87.891 Personal history of nicotine dependence; K62.5 Hemorrhage of anus and rectum
CPT/HCPCS: 36415; 36430; 71045-TC-FY; 76775-TC; 80048; 80053; 81003; 82272; 82550; 82728; 82962; 82977; 83010; 83540; 83550; 83615; 83735; 84100; 85025; 85045; 85610; 85730; 86850; 86900; 86901; 86922; 87086; 88305-TC; 93005; 93010; 96361; 96365; 96366; 96375; 99285-25; C9803-CS; G0378; J1756; P9058; U0003; U0005

== ENCOUNTER 2022-09-12 13:54 | Inpatient (IN) | payer OTHER ==
[2022-09-12 16:57] LABS: BASO % 0.7 % (0-2.0); EOS % 4.8 % (0-4.5); HEMATOCRIT 34.5 % (35.4-49); HEMOGLOBIN 10.8 GM/dL (11.7-16.9); MCH 22.3 pg (25.7-33.7); MCHC 31.4 g/dl (32.0-35.9); MEAN PLT VOLUME 7.4 fl (7.5-11.1); MONO % 8.7 % (3.8-10.2); NEUT % 53.8 % (42.8-82.8); PLATELET COUNT 330 10^3/uL (134-434); RBC 4.86 M/mm3 (4.00-5.60); WHITE BLOOD COUNT 5.7 K/mm3 (4.0-10.0)
[2022-09-12 17:03] LABS: INR 1.05 (0.83-1.09); PROTHROMBIN TIME (PATIENT) 12.1 SEC (9.7-13.0)
[2022-09-12 17:06] LABS: ACTIVATED PTT 29.3 SECONDS (25.2-36.5)
[2022-09-12 17:16] LABS: CALCIUM 9.3 mg/dL (8.5-10.1)
[2022-09-12 17:17] LABS: ALBUMIN 3.5 g/dl (3.4-5.0)
[2022-09-12 17:20] LABS: CREATININE 1.5 mg/dL (0.55-1.3)
[2022-09-12 17:22] LABS: BILIRUBIN,TOTAL 0.3 mg/dL (0.2-1); TOT PROT 7.8 g/dl (6.4-8.2)
[2022-09-12] MEDS: INSULIN SLIDING SCALE (NOVOLOG) 1 VIAL SQ SCH (22:35)
[2022-09-13 02:04] VITALS: BMI 25.3
[2022-09-13] MEDS: INSULIN SLIDING SCALE (NOVOLOG) 1 VIAL SQ SCH ×4 (06:10→22:06)
[2022-09-13] MEDS ORDERED: PANTOPRAZOLE SODIUM 40 MG VIAL IVPUSH SCH (10:00)
[2022-09-13] MEDS ORDERED: CLOPIDOGREL BISULFATE 75 MG TABLET (FP) PO SCH (14:45)
[2022-09-13] MEDS: FUROSEMIDE 20 MG TABLET (FP) PO SCH (14:51)
[2022-09-13] MEDS: QUINAPRIL HCL 40 MG TABLET PO SCH (14:59)
[2022-09-13] MEDS ORDERED: BISACODYL 5 MG TABLET.DR (FP) PO ONE (16:00)
[2022-09-13] MEDS ORDERED: PEG 3350/NA SULF BICARB CL/KCL 4000 ML SOLN.RECON PO ONE (17:00)
[2022-09-13] MEDS: GABAPENTIN 100 MG CAPSULE PO SCH (22:05)
[2022-09-13] MEDS: TAMSULOSIN HCL 0.4 MG CAP PO SCH (22:06)
[2022-09-13] MEDS: ATORVASTATIN CA 40 MG TABLET (FP) PO SCH (22:06)
[2022-09-14] MEDS: INSULIN SLIDING SCALE (NOVOLOG) 1 VIAL SQ SCH ×4 (06:37→21:47)
[2022-09-14 12:12] LABS: BASO % 0.6 % (0-2.0); EOS % 3.3 % (0-4.5); HEMATOCRIT 37.5 % (35.4-49); HEMOGLOBIN 11.8 GM/dL (11.7-16.9); LYMPH % 28.5 % (8-40); MCH 22.2 pg (25.7-33.7); MCHC 31.6 g/dl (32.0-35.9); MEAN CELL VOLUME 70.4 fl (80-96); MEAN PLT VOLUME 6.9 fl (7.5-11.1); MONO % 8.6 % (3.8-10.2); PLATELET COUNT 327 10^3/uL (134-434); RBC 5.32 M/mm3 (4.00-5.60); RDW 19.5 % (11.9-15.9); WHITE BLOOD COUNT 5.3 K/mm3 (4.0-10.0)
[2022-09-14 12:20] LABS: INR 1.06 (0.83-1.09); PROTHROMBIN TIME (PATIENT) 12.2 SEC (9.7-13.0)
[2022-09-14] MEDS: TAMSULOSIN HCL 0.4 MG CAP PO SCH ×2 (12:43→21:46)
[2022-09-14] MEDS: FUROSEMIDE 20 MG TABLET (FP) PO SCH (12:43)
[2022-09-14] MEDS: PANTOPRAZOLE 40 MG TABLET PO SCH (12:43)
[2022-09-14] MEDS: GABAPENTIN 100 MG CAPSULE PO SCH ×2 (12:43→21:46)
[2022-09-14] MEDS: QUINAPRIL HCL 40 MG TABLET PO SCH (12:44)
[2022-09-14 13:01] LABS: CALCIUM 9.4 mg/dL (8.5-10.1)
[2022-09-14 13:03] LABS: CREATININE 1.6 mg/dL (0.55-1.3)
[2022-09-14] MEDS: HYDROCORTISONE ACETATE 25 MG/SUPP.RECT RC SCH (21:45)
[2022-09-14] MEDS: ATORVASTATIN CA 40 MG TABLET (FP) PO SCH (21:46)
[2022-09-15] MEDS: INSULIN SLIDING SCALE (NOVOLOG) 1 VIAL SQ SCH ×2 (06:29→12:52)
[2022-09-15] MEDS: HYDROCORTISONE ACETATE 25 MG/SUPP.RECT RC SCH (09:23)
[2022-09-15] MEDS: TAMSULOSIN HCL 0.4 MG CAP PO SCH (09:23)
[2022-09-15] MEDS: GABAPENTIN 100 MG CAPSULE PO SCH (09:23)
[2022-09-15] MEDS: FUROSEMIDE 20 MG TABLET (FP) PO SCH (09:23)
[2022-09-15] MEDS: PANTOPRAZOLE 40 MG TABLET PO SCH (09:24)
[2022-09-15] MEDS: QUINAPRIL HCL 40 MG TABLET PO SCH (09:27)
[2022-09-15 14:01] VITALS: BP 95/69; PULSE 75; RESP 16; TEMP 98.8
== END 2022-09-15 15:29 | disposition home or self-care (01) | DRG 394 ==
LOC: JER 13:54 → JERBED 18:26 → OBSVTOIN 21:19 → J5S 21:41
PROVIDERS: ADMIT Internal Medicine; ATTEND Internal Medicine
PROC: 0DBH8ZX Excision of Cecum, Via Natural or Artificial Opening Endoscopic, Diagnostic (ICD-10-PCS; principal; 2022-09-14 09:00)
DX: K64.8 Other hemorrhoids (principal); I13.0 Hypertensive heart and chronic kidney disease with heart failure and stage 1 through stage 4 chronic kidney disease, or unspecified chronic kidney disease; I50.22 Chronic systolic (congestive) heart failure; K92.2 Gastrointestinal hemorrhage, unspecified; D50.9 Iron deficiency anemia, unspecified; I25.10 Atherosclerotic heart disease of native coronary artery without angina pectoris; E11.65 Type 2 diabetes mellitus with hyperglycemia; N18.30 Chronic kidney disease, stage 3 unspecified; E78.5 Hyperlipidemia, unspecified; Z95.1 Presence of aortocoronary bypass graft; N40.0 Benign prostatic hyperplasia without lower urinary tract symptoms; K57.30 Diverticulosis of large intestine without perforation or abscess without bleeding; D12.0 Benign neoplasm of cecum
CPT/HCPCS: 0241U-QW; 36415; 80048; 80053; 82272; 82962; 84484; 85025; 85610; 85730; 86850; 86900; 86901; 88305-TC; 93005; 93010; 99285-25; G0378

== ENCOUNTER 2022-11-13 14:09 | Emergency (ER) | payer OTHER ==
[2022-11-13 14:59] VITALS: BP 126/75; PULSE 67; RESP 20; TEMP 98.5; BMI 26.6
[2022-11-13 16:31] LABS: EOS % 4.9 % (0-4.5); HEMATOCRIT 38.6 % (35.4-49); HEMOGLOBIN 12.3 GM/dL (11.7-16.9); LYMPH % 25.4 % (8-40); MCH 22.4 pg (25.7-33.7); MEAN PLT VOLUME 8.7 fl (7.5-11.1); MONO % 7.6 % (3.8-10.2); NEUT % 61.1 % (42.8-82.8); PLATELET COUNT 325 10^3/uL (134-434); RBC 5.51 M/mm3 (4.00-5.60); RDW 17.5 % (11.9-15.9); WHITE BLOOD COUNT 5.9 K/mm3 (4.0-10.0)
[2022-11-13 16:53] LABS: CHLORIDE 107 mmol/L (98-107); SODIUM 135 mmol/L (136-145)
[2022-11-13 16:55] LABS: ALBUMIN 3.5 g/dl (3.4-5.0); CALCIUM 9.5 mg/dL (8.5-10.1); CO2 24 mmol/L (21-32)
[2022-11-13 16:56] LABS: BLOOD UREA NITROGEN 16.5 mg/dL (7-18); GLUCOSE,RANDOM 179 mg/dL (74-106)
[2022-11-13 16:58] LABS: CREATININE 1.5 mg/dL (0.55-1.3); SGPT/ALT 18 U/L (13-61)
[2022-11-13 16:59] LABS: SGOT/AST 42 U/L (15-37)
[2022-11-13 17:00] LABS: BILIRUBIN,TOTAL 0.5 mg/dL (0.2-1); TOT PROT 8.7 g/dl (6.4-8.2)
[2022-11-13 17:01] LABS: ALK PHOS 160 U/L (45-117)
[2022-11-13 17:04] LABS: ANION GAP 4 MMOL/L (8-16)
[2022-11-13] MEDS ORDERED: DEXTROSE 50%-WATER - 25 GM/50 ML VIAL IVPUSH ONE (17:56)
== END 2022-11-13 18:57 | disposition left against medical advice (07) ==
LOC: JER 14:09
PROC: 3E033GC Introduction of Other Therapeutic Substance into Peripheral Vein, Percutaneous Approach (ICD-10-PCS; principal; 2022-11-13)
DX: E11.649 Type 2 diabetes mellitus with hypoglycemia without coma (principal)
CPT/HCPCS: 0241U-QW; 36415; 71045-TC-FY; 80053; 82962; 85025; 93005; 93010; 99284-25

== ENCOUNTER 2022-12-11 04:20 | Day surgery (SDC) | payer OTHER ==
[2022-12-07 16:27] VITALS: BMI 28.2
[2022-12-11] MEDS ORDERED: LIDOCAINE HCL 2% JELLY 10 ML CARTRIDGE ONE (10:15)
[2022-12-11] MEDS ORDERED: LIDOCAINE HCL 2% JELLY 10 ML CARTRIDGE TP ONE (10:21)
[2022-12-11 10:33] VITALS: TEMP 98
[2022-12-11 10:53] VITALS: PULSE 65
[2022-12-11 15:29] VITALS: BP 152/64; RESP 18
== END 2022-12-11 12:12 | disposition home or self-care (01) ==
LOC: JASU-ENDO 04:20
PROVIDERS: ATTEND Internal Medicine Gastroenterology
PROC: 06LY8CC Occlusion of Hemorrhoidal Plexus with Extraluminal Device, Via Natural or Artificial Opening Endoscopic (ICD-10-PCS; principal; 2022-12-11 09:30)
DX: K64.8 Other hemorrhoids (principal); K62.5 Hemorrhage of anus and rectum; K57.30 Diverticulosis of large intestine without perforation or abscess without bleeding; Z86.010 Personal history of colon polyps
CPT/HCPCS: 82962

== ENCOUNTER 2024-02-11 16:42 | Emergency (ER) | payer OTHER ==
[2024-02-11 16:51] VITALS: BP 159/92; PULSE 92; RESP 16; TEMP 99.2; BMI 26.6
[2024-02-11] MEDS: LACTATED RINGERS SOLUTION 1000 ML INFUS.BAG IV ONE (19:25)
[2024-02-11 19:28] LABS: VENOUS BASE EXCESS -3.4 mmol/L (-2-2); VENOUS O2 SATURATION 50.4 % (70-80); VENOUS PCO2 45.2 mmHg (38-52); VENOUS PH 7.32 (7.310-7.410)
[2024-02-11 19:29] LABS: BASO % 0.8 % (0-2.0); EOS % 3.5 % (0-4.5); HEMATOCRIT 34.7 % (35.4-49); HEMOGLOBIN 11.1 GM/dL (11.7-16.9); LYMPH % 26.2 % (8-40); MCH 22.9 pg (25.7-33.7); MCHC 31.9 g/dl (32.0-35.9); MEAN CELL VOLUME 71.7 fl (80-96); MEAN PLT VOLUME 7.2 fl (7.5-11.1); MONO % 12.8 % (3.8-10.2); NEUT % 56.7 % (42.8-82.8); PLATELET COUNT 277 10^3/uL (134-434); RBC 4.84 M/mm3 (4.00-5.60); RDW 15.3 % (11.9-15.9); WHITE BLOOD COUNT 7.7 K/mm3 (4.0-10.0)
[2024-02-11 20:27] LABS: POTASSIUM 4.4 mmol/L (3.5-5.1)
[2024-02-11 20:30] LABS: BLOOD UREA NITROGEN 24.6 mg/dL (7-18); CALCIUM 8.8 mg/dL (8.5-10.1)
[2024-02-11 20:33] LABS: CREATININE 1.7 mg/dL (0.55-1.3); PHOSPHOROUS 2.8 mg/dL (2.5-4.9)
[2024-02-11 20:34] LABS: BILIRUBIN,TOTAL 0.6 mg/dL (0.2-1); TOT PROT 7.5 g/dl (6.4-8.2)
== END 2024-02-11 21:15 | disposition home or self-care (01) ==
LOC: JER 16:42
DX: E11.65 Type 2 diabetes mellitus with hyperglycemia (principal); R05.9 Cough, unspecified; R07.89 Other chest pain; Z20.822 Contact with and (suspected) exposure to COVID-19
CPT/HCPCS: 0241U-QW; 36415; 71045-TC-FY; 80053; 82010; 82803; 82962; 83735; 83930; 84100; 85025; 93005; 93010; 99285-25

== ENCOUNTER 2024-06-04 07:36 | Emergency (ER) | payer OTHER ==
[2024-06-04 07:52] VITALS: BP 150/75; PULSE 79; RESP 16; TEMP 97.9; BMI 25.0
[2024-06-04] MEDS: SODIUM CHLORIDE 0.9% 500 ML INFUS.BAG IV ONE (09:05)
[2024-06-04 09:53] LABS: HEMATOCRIT 32.9 % (35.4-49); HEMOGLOBIN 10.6 GM/dL (11.7-16.9); MCH 23.6 pg (25.7-33.7); MCHC 32.4 g/dl (32.0-35.9); MEAN PLT VOLUME 6.9 fl (7.5-11.1); PLATELET COUNT 264 10^3/uL (134-434); RDW 15.8 % (11.9-15.9); WHITE BLOOD COUNT 6.1 K/mm3 (4.0-10.0)
[2024-06-04 10:22] LABS: BLOOD UREA NITROGEN 22.6 mg/dL (7-18); CALCIUM 8.8 mg/dL (8.5-10.1)
[2024-06-04 10:23] LABS: ALBUMIN 3.3 g/dl (3.4-5.0)
[2024-06-04 10:25] LABS: BILIRUBIN,DIRECT 0.1 mg/dL (0.0-0.2)
[2024-06-04 10:26] LABS: CREATININE 1.5 mg/dL (0.55-1.3)
[2024-06-04 10:27] LABS: BILIRUBIN,TOTAL 0.4 mg/dL (0.2-1); TOT PROT 8.2 g/dl (6.4-8.2)
[2024-06-04 13:02] LABS: ANISOCYTOSIS 0; MACROCYTOSIS 0
== END 2024-06-04 12:45 | disposition home or self-care (01) ==
LOC: JER 07:36 → JERFT 07:36
PROC: 3E033GC Introduction of Other Therapeutic Substance into Peripheral Vein, Percutaneous Approach (ICD-10-PCS; principal; 2024-06-04)
DX: L29.9 Pruritus, unspecified (principal); R21 Rash and other nonspecific skin eruption
CPT/HCPCS: 36415; 80053; 80076; 84443; 85025; 99284-25

== ENCOUNTER 2024-06-16 12:32 | Emergency (ER) | payer OTHER ==
[2024-06-16 12:37] VITALS: BP 152/77; PULSE 78; RESP 18; TEMP 97.6; BMI 27.3
== END 2024-06-16 15:48 | disposition home or self-care (01) ==
LOC: JER 12:32
DX: M79.89 Other specified soft tissue disorders (principal); L29.9 Pruritus, unspecified; B86 Scabies
CPT/HCPCS: 93970-TC; 99284-25